=== PATIENT | female | born 1995 | race Caucasian/White ===

== ENCOUNTER 2022-03-03 00:05 | Emergency (ER) | payer OTHER ==
[2022-03-03 00:11] VITALS: TEMP 97.7
[2022-03-03] MEDS ORDERED: ACETAMINOPHEN TAB 500 MG TAB PO STA (00:21)
[2022-03-03] MEDS ORDERED: IBUPROFEN 400 MG TAB PO STA (00:21)
--- NOTE | 2022-03-03 00:24 | ED ---
ENT HPI - General Chief complaint: ENT Stated complaint: neck pain Time Seen by Provider: 03/03/22 00:14 Source: patient, RN notes reviewed Mode of arrival: ambulatory Limitations: no limitations - History of Present Illness Initial comments: This is a pleasant 26-year-old female presents complaining of sore throat, body aches, subjective fever since Saturday. Patient states she has history of lupus and rheumatoid arthritis. She states she leaves is getting a mild flare of her arthritis along with the fever. Patient has had a mild runny nose and a very mild cough. Patient denying any productive cough. Denies any problems with urination. No nausea or vomiting. No changes in bowel movements. No skin rashes or lesions. Patient to home COVID-19 test which was negative. Patient denies any respiratory distress. No neck stiffness. No change in vision or hearing. - Related Data Previous Rx's Medication Instructions Recorded methylPREDNISolone [Medrol] 4 mg PO DIRECTED #1 each 03/03/22 Allergies Allergy/AdvReac Type Severity Reaction Status Date / Time No Known Allergies Allergy Verified 03/03/22 00:06 Review of Systems ROS Statement: Those systems with pertinent positive or pertinent negative responses have been documented in the HPI. ROS Other: All systems not noted in ROS Statement are negative. Past Medical History Additional Past Medical History / Comment(s): LUPUS, RA History of Any Multi-Drug Resistant Organisms: None Reported Past Surgical History: No Surgical Hx Reported Past Psychological History: No Psychological Hx Reported Smoking Status: Never smoker Past Alcohol Use History: None Reported Past Drug Use History: None Reported General Exam - General Exam Comments Initial Comments: Vital signs stable, patient afebrile. Patient appears to be minimally ill but not toxic. Limitations: no limitations General appearance: alert, in no apparent distress Head exam: Present: atraumatic, normocephalic, normal inspection Eye exam: Present: normal appearance, PERRL, EOMI. Absent: scleral icterus, conjunctival injection, periorbital swelling ENT exam: Present: normal exam, normal oropharynx, mucous membranes moist, TM's normal bilaterally, normal external ear exam. Absent: mucous membranes dry Expanded Mouth exam: Present: normal external inspection. Absent: drooling, trismus, muffled voice, tongue normal, tongue elevation, laceration Teeth exam: Present: normal inspection Throat exam: normal inspection. negative: tonsillar erythema, tonsillomegaly, tonsillar exudate, R peritonsillar mass, L peritonsillar mass Neck exam: Present: normal inspection, full ROM. Absent: tenderness, meningismus, lymphadenopathy Respiratory exam: Present: normal lung sounds bilaterally. Absent: respiratory distress, wheezes, rales, rhonchi, stridor, chest wall tenderness, accessory muscle use, decreased breath sounds, prolonged expiratory Cardiovascular Exam: Present: regular rate, normal rhythm, normal heart sounds. Absent: systolic murmur, diastolic murmur, rubs, gallop, clicks GI/Abdominal exam: Present: soft, normal bowel sounds. Absent: distended, tenderness, guarding, rebound, rigid Extremities exam: Present: normal inspection, full ROM, normal capillary refill. Absent: tenderness, pedal edema, joint swelling, calf tenderness Back exam: Present: normal inspection Neurological exam: Present: alert, oriented X3, CN II-XII intact Psychiatric exam: Present: normal affect, normal mood Skin exam: Present: warm, dry, intact, normal color. Absent: rash Course Vital Signs 03/03/22 00:07 Temperature 97.7 F Pulse Rate 78 Respiratory 18 Rate Blood Pressure 122/80 O2 Sat by Pulse 99 Oximetry - Reevaluation(s) Reevaluation #1: 03/03/22 01:55 Medical record is reviewed Symptoms are improved here in the emergency department Patient is informed of results and questions answered Patient in no distress Medical Decision Making - Medical Decision Making Patient presents symptomology most consistent with viral syndrome. No evidence of respiratory distress. Patient appears to be adequately hydrated. We'll order influenza and COVID-19 testing. Ibuprofen and acetaminophen ordered. We'll also order a streptococcal test. However this does not appear to be consistent with this. Patient's viral test is negative. Streptococcal testing is negative. Patient's presentation consistent with viral syndrome. We did discuss possibility of other viruses to include mononucleosis. However the patient is only 2 or 3 days into the illness. Mononucleosis testing likely to be negative. I did tell the patient if she is still ill after 7-10 days she should have blood work done to include mononucleosis testing. I did offer laboratory work to the patient which she deferred. Aspect patient has a viral syndrome. Blood was deferred shared decision-making. Work note given. Patient will follow-up with her regular physician on Saturday. I'm going to cover the patient with a Medrol Dosepak and a dose of dexamethasone here based on her symptomology. Certainly the patient could have a flareup of her rheumatoid arthritis as well. The case was discussed in detail with ED attending physician. Presentation, findings, treatment plan discussed in detail. Patient was told to return to the ER for any signs or symptoms worsen. Told to return immediately if any other problems arise. All questions answered. Treatment plan discussed. Patient in agreement Every effort has been made to ensure accuracy of this dictation. However, due to the limitations of electronic medical records and dictation devices, errors in charting still occur. Supervising physician is Dr. Gardner - Lab Data Lab Results 03/03/22 03/03/22 03/03/22 Range/Units 01:10 01:10 01:10 Coronavirus (PCR) Not Detected (Not Detectd) Influenza Type A RNA Not Detected (Not Detectd) Influenza Type B (PCR) Not Detected (Not Detectd) Group A Strep Rapid Negative (Negative) Disposition Clinical Impression: Acute viral pharyngitis, Acute viral syndrome Disposition: HOME SELF-CARE Condition: Good Instructions (If sedation given, give patient instructions): Viral Syndrome (ED) Additional Instructions: Follow-up with your regular physician as directed. Return to the ER immediately if any symptoms worsen, new symptoms arise, or any other problems develop. Follow-up with Dr. Her on Saturday. Prescriptions: methylPREDNISolone [Medrol] 4 mg PO DIRECTED #1 each Is patient prescribed a controlled substance at d/c from ED?: No Referrals: Naman Her DO [Primary Care Provider] - 1-2 days Time of Disposition: 01:56
[2022-03-03] MEDS ORDERED: DEXAMETHASONE SOD PHOSPHATE 10 MG/ML 1 ML VIAL IM STA (01:54)
[2022-03-03 03:23] VITALS: BP 121/74; PULSE 74; RESP 16
== END 2022-03-03 03:25 | disposition home or self-care (01) ==
LOC: EC 00:05
DX: J02.8 Acute pharyngitis due to other specified organisms (principal); B34.9 Viral infection, unspecified; Z20.822 Contact with and (suspected) exposure to COVID-19
CPT/HCPCS: 87081; 87430; 87502; 87635; 99284; 96372; J1100

== ENCOUNTER 2022-03-10 11:59 | Inpatient (IN) | payer OTHER ==
--- NOTE | 2022-03-10 12:51 | XR ---
EXAMINATION TYPE: XR chest 2V DATE OF EXAM: 03/10/2022 COMPARISON: NONE HISTORY: Cough and shortness of breath for 1.5 weeks. TECHNIQUE: Frontal and lateral views of the chest are obtained. FINDINGS: There are small to tiny bilateral pleural effusions. No suspicious focal airspace opacity or pneumothorax. The cardiac silhouette size is within normal limits. The osseous structures are i ntact. IMPRESSION: Small to tiny bilateral pleural effusions. No suspicious acute infiltrate.
[2022-03-10 13:50] LABS: Prothrombin Time 10.7 sec (9.0-12.0)
[2022-03-10 13:55] LABS: ALT 12 U/L (4-34); AST 24 U/L (14-36); African American GFR (CKD) >90 (>60 ml/min/1.73 sqM); Albumin 4.4 g/dL (3.5-5.0); Alkaline Phosphatase 68 U/L (38-126); Anion Gap 13 mmol/L; Basophils % (A) 0 %; Blood Urea Nitrogen 14 mg/dL (7-17); Calcium 8.8 mg/dL (8.4-10.2); Carbon Dioxide 24 mmol/L (22-30); Chloride 99 mmol/L (98-107); Eosinophils # (A) 0.1 k/uL (0-0.7); Eosinophils % (A) 1 %; Glucose 99 mg/dL (74-99); HCT 43.1 % (34.0-46.0); HGB 14.5 gm/dL (11.4-16.0); Lymphocytes # (A) 1.3 k/uL (1.0-4.8); Lymphocytes % (A) 12 %; MCH 27.8 pg (25.0-35.0); MCHC 33.6 g/dL (31.0-37.0); MCV 82.7 fL (80.0-100.0); Mean Platelet Volume 7.5; Monocytes # (A) 0.3 k/uL (0-1.0); Monocytes % (A) 3 %; Neutrophils # (A) 8.5 k/uL (1.3-7.7); Neutrophils % (A) 83 %; Non-African American GFR(CKD) >90 (>60 ml/min/1.73 sqM); Platelet Count 218 k/uL (150-450); RBC 5.21 m/uL (3.80-5.40); RDW 12.8 % (11.5-15.5); Sodium 136 mmol/L (137-145); Total Bilirubin 0.5 mg/dL (0.2-1.3); WBC 10.3 k/uL (3.8-10.6)
[2022-03-10] MEDS ORDERED: KETOROLAC 15 MG/ML 1 ML VIAL IM STA (14:38)
--- NOTE | 2022-03-10 16:46 | CT ---
EXAMINATION TYPE: CT chest angio for PE CT DLP: 223.6 mGycm, Automated exposure control for dose reduction was used. DATE OF EXAM: 03/10/2022 4:06 PM COMPARISON: . Chest radiograph from same day. CLINICAL INDICATION:Female, 26 years old with history of SOB, ELEVATED D-DIMER; elevated d-dimer. sob . Coughing up blood TECHNIQUE/CONTRAST: CTA scan of the thorax is performed with IV Contrast, patient injected with 56ml mL of Isovue 370, pu lmonary embolism protocol. MIP images are created and reviewed. FINDINGS: Pulmonary Artery: Filling defects are seen within the pulmonary arterial vasculature including the ri ght middle and lower lobe as well as the left upper and lower lobes segmental and subsegmental branch es. There is no evidence for right heart chain. The pulmonary artery is of normal size. Lungs/Pleura: Opacities seen within the lung bases in the periphery bilaterally. Trace left pleural e ffusion is suggested. No pneumothorax. Airway: Large airways are patent. Heart: Heart is within normal limits for size.. Vasculature: No evidence of aortic aneurysm. Mediastinum: No gross evidence of adenopathy. Musculoskeletal: No acute osseous abnormalities Soft Tissues: Unremarkable. Lower neck: No significant findings. Upper Abdomen: No significant findings. IMPRESSION: 1. Scattered pulmonary emboli without evidence for right heart strain. 2. More solid appearing opacities with some groundglass located peripherally and in the bilateral low er lobes. These could represent early pulmonary infarct.
[2022-03-10] MEDS ORDERED: HEPARIN SODIUM 1,000 UN/ML (10ML VL) IV PRN (16:59)
[2022-03-10] MEDS ORDERED: HEPARIN SODIUM 1,000 UN/ML (10ML VL) IV ONE (16:59)
[2022-03-10] MEDS: HEPARIN SOD,PORK IN 0.45% NACL 25,000 UNIT in 0.45% NACL 1 250ML.BAG IV SCH (17:07)
[2022-03-10] MEDS ORDERED: NALOXONE 0.4 MG/ML 1 ML VIAL IV PRN (17:33)
--- NOTE | 2022-03-10 17:39 | ED ---
General Adult HPI - General Chief complaint: Shortness of Breath Stated complaint: Coughing up blood Time Seen by Provider: 03/10/22 13:57 Source: patient Mode of arrival: ambulatory Limitations: no limitations - History of Present Illness Initial comments: Patient is a 26-year-old female presenting with chief complaint of pleuritic chest pain and hemoptysis. Patient states that she has been sick for the last week, she has had a sore throat and blood-tinged sputum. She admits to pain along the sides and back with deep breathing. Patient was evaluated and tested for Covid, flu, strep throat all of which were negative. She has a history of lupus and rheumatoid arthritis, states that this illness has caused a flareup. Patient has previously been treated with a steroid for this issue. She denies any abdominal pain, nausea, vomiting, fever, chills, palpitations, weakness, leg pain or swelling, recent travel, recent surgery, use of oral contraceptives, history of blood clots, dysuria, hematuria, urgency, frequency, hematochezia, melena. - Related Data Home Medications Medication Instructions Recorded Confirmed Acetaminophen [Tylenol Extra 1,000 mg PO Q6H PRN 03/10/22 03/10/22 Strength] Azithromycin [Zithromax Z-pack (6 See Taper PO DIRECTED 03/10/22 03/10/22 tabs)] Allergies Allergy/AdvReac Type Severity Reaction Status Date / Time No Known Allergies Allergy Verified 03/10/22 17:59 Review of Systems ROS Statement: Those systems with pertinent positive or pertinent negative responses have been documented in the HPI. ROS Other: All systems not noted in ROS Statement are negative. Past Medical History Additional Past Medical History / Comment(s): LUPUS, RA History of Any Multi-Drug Resistant Organisms: None Reported Past Surgical History: No Surgical Hx Reported Past Psychological History: No Psychological Hx Reported Smoking Status: Never smoker Past Alcohol Use History: None Reported Past Drug Use History: None Reported General Exam Limitations: no limitations General appearance: alert, in no apparent distress Head exam: Present: atraumatic, normocephalic, normal inspection Eye exam: Present: normal appearance, EOMI. Absent: scleral icterus Neck exam: Present: normal inspection Respiratory exam: Present: normal lung sounds bilaterally. Absent: respiratory distress, wheezes, rales, rhonchi, stridor Cardiovascular Exam: Present: regular rate, normal rhythm, normal heart sounds. Absent: systolic murmur, diastolic murmur, rubs, gallop, clicks Neurological exam: Present: alert, oriented X3, CN II-XII intact Psychiatric exam: Present: normal affect, normal mood Skin exam: Present: warm, dry, intact, normal color. Absent: rash Course Vital Signs 03/10/22 03/10/22 03/10/22 12:27 17:10 21:02 Temperature 98.4 F 98.4 F Pulse Rate 102 H 80 Pulse Rate [ 90 Pulse Oximetery ] Respiratory 20 18 16 Rate Blood Pressure 100/72 112/72 Blood Pressure 116/70 [Left Arm] O2 Sat by Pulse 100 98 99 Oximetry EKG Findings - EKG Comments: EKG Findings:: Sinus tachycardia with rate of 103. There is borderline right axis deviation. SC interval of 126. QRS duration of 70. No S1 Q3 T3 pattern Procedures - [place] Protocol (Time Out) Nurse: Geetha Arzate Medical Decision Making - Medical Decision Making Patient is a 26-year-old female presenting with chief complaint of shortness of breath and pleuritic chest pain. She has a history of lupus and rheumatoid arthritis. She states that symptoms have been going on for the last week and have caused a flareup of her lupus. She was evaluated at urgent care today who sent her here when she admitted to hemoptysis. On examination lungs are clear to auscultation. EKG is without acute changes. D-dimer is elevated at 6.60. CTA of the chest shows scattered pulmonary emboli without evidence for right heart strain. More solid-appearing opacities with some groundglass located per ipherally in the bilateral lower lobes these could represent early pulmonary infarct. Patient was given Toradol for pain and high-dose heparin protocol for PE. Troponin is 0.025. BNP is 36. Venous Doppler study of bilateral lower extremities was ordered. Patient denies any current leg pain, she states that she did have calf pain back in November. I spoke with Dr. Aguilera regarding the plan for PE treatment. I spoke with [facility] agreed to admit the patient. Educated the patient on the findings. Patient conveyed verbal understanding was in agreement with the plan. I discussed this case with my attending Dr. Gutierrez - Lab Data Result diagrams: 03/10/22 13:20 03/10/22 13:20 Lab Results 03/10/22 03/10/22 03/10/22 Range/Units 13:20 13:20 13:20 WBC 10.3 (3.8-10.6) k/uL RBC 5.21 (3.80-5.40) m/uL Hgb 14.5 (11.4-16.0) gm/dL Hct 43.1 (34.0-46.0) % MCV 82.7 (80.0-100.0) fL MCH 27.8 (25.0-35.0) pg MCHC 33.6 (31.0-37.0) g/dL RDW 12.8 (11.5-15.5) % Plt Count 218 (150-450) k/uL MPV 7.5 Neutrophils % 83 % Lymphocytes % 12 % Monocytes % 3 % Eosinophils % 1 % Basophils % 0 % Neutrophils # 8.5 H (1.3-7.7) k/uL Lymphocytes # 1.3 (1.0-4.8) k/uL Monocytes # 0.3 (0-1.0) k/uL Eosinophils # 0.1 (0-0.7) k/uL Basophils # 0.0 (0-0.2) k/uL PT 10.7 (9.0-12.0) sec INR 1.0 (<1.2) APTT 36.0 H (22.0-30.0) sec D-Dimer (<0.60) mg/L FEU Sodium 136 L (137-145) mmol/L Potassium 4.0 (3.5-5.1) mmol/L Chloride 99 (98-107) mmol/L Carbon Dioxide 24 (22-30) mmol/L Anion Gap 13 mmol/L BUN 14 (7-17) mg/dL Creatinine 0.70 (0.52-1.04) mg/dL Est GFR (CKD-EPI)AfAm >90 (>60 ml/min/1.73 sqM) Est GFR (CKD-EPI)NonAf >90 (>60 ml/min/1.73 sqM) Glucose 99 (74-99) mg/dL Plasma Lactic Acid Jonn (0.7-2.0) mmol/L Calcium 8.8 (8.4-10.2) mg/dL Total Bilirubin 0.5 (0.2-1.3) mg/dL AST 24 (14-36) U/L ALT 12 (4-34) U/L Alkaline Phosphatase 68 (38-126) U/L Troponin I (0.000-0.034) ng/mL Total Protein 8.0 (6.3-8.2) g/dL Albumin 4.4 (3.5-5.0) g/dL 03/10/22 03/10/22 03/10/22 Range/Units 13:20 13:20 15:05 WBC (3.8-10.6) k/uL RBC (3.80-5.40) m/uL Hgb (11.4-16.0) gm/dL Hct (34.0-46.0) % MCV (80.0-100.0) fL MCH (25.0-35.0) pg MCHC (31.0-37.0) g/dL RDW (11.5-15.5) % Plt Count (150-450) k/uL MPV Neutrophils % % Lymphocytes % % Monocytes % % Eosinophils % % Basophils % % Neutrophils # (1.3-7.7) k/uL Lymphocytes # (1.0-4.8) k/uL Monocytes # (0-1.0) k/uL Eosinophils # (0-0.7) k/uL Basophils # (0-0.2) k/uL PT (9.0-12.0) sec INR (<1.2) APTT (22.0-30.0) sec D-Dimer 6.60 H (<0.60) mg/L FEU Sodium (137-145) mmol/L Potassium (3.5-5.1) mmol/L Chloride (98-107) mmol/L Carbon Dioxide (22-30) mmol/L Anion Gap mmol/L BUN (7-17) mg/dL Creatinine (0.52-1.04) mg/dL Est GFR (CKD-EPI)AfAm (>60 ml/min/1.73 sqM) Est GFR (CKD-EPI)NonAf (>60 ml/min/1.73 sqM) Glucose (74-99) mg/dL Plasma Lactic Acid Jonn 1.1 (0.7-2.0) mmol/L Calcium (8.4-10.2) mg/dL Total Bilirubin (0.2-1.3) mg/dL AST (14-36) U/L ALT (4-34) U/L Alkaline Phosphatase (38-126) U/L Troponin I 0.025 (0.000-0.034) ng/mL Total Protein (6.3-8.2) g/dL Albumin (3.5-5.0) g/dL Disposition Clinical Impression: Pulmonary embolism Disposition: ADMITTED IP TO THIS [facility] Condition: Fair Time of Disposition: 17:39 Decision to Admit Reason: Admit from EC Decision Date: 03/10/22 Decision Time: 17:39
--- NOTE | 2022-03-10 17:55 | US ---
EXAMINATION TYPE: US venous doppler duplex LE DATE OF EXAM: 03/10/2022 5:14 PM COMPARISON: NONE CLINICAL HISTORY: pulmonary emboli, check for DVT. On IV heparin SIDE PERFORMED: Bilateral TECHNIQUE: The lower extremity deep venous system is examined utilizing real time linear array sonog jessica with graded compression, doppler sonography and color-flow sonography. VESSELS IMAGED: Common Femoral Vein Deep Femoral Vein Greater Saphenous Vein * Femoral Vein Popliteal Vein Small Saphenous Vein * Proximal Calf Veins (* superficial vessels) Grayscale, color doppler, spectral doppler imaging performed of the deep veins of the lower extremiti es. Right Leg: Negative for DVT Left Leg: Positive for DVT from distal Femoral vein to proximal calf veins. Thready flow. Compressi bility with decreased color flow involving the distal femoral vein into the posterior tibial veins. IMPRESSION: 1. Deep vein thrombosis of the left femoral vein involving the distal portion to the posterior tibia l veins. 2. No evidence of deep vein tendinosis of the right lower extremity.
[2022-03-10] MEDS ORDERED: traMADol 50 MG TAB PO PRN (21:16)
[2022-03-10] MEDS ORDERED: ACETAMINOPHEN TAB 325 MG TAB PO PRN (21:18)
[2022-03-11 08:29] LABS: Basophils % (A) 0 %; Eosinophils # (A) 0.1 k/uL (0-0.7); Eosinophils % (A) 1 %; HGB 12.5 gm/dL (11.4-16.0); Lymphocytes # (A) 0.9 k/uL (1.0-4.8); Lymphocytes % (A) 11 %; MCH 28.2 pg (25.0-35.0); MCHC 33.9 g/dL (31.0-37.0); MCV 83.3 fL (80.0-100.0); Mean Platelet Volume 7.1; Monocytes # (A) 0.3 k/uL (0-1.0); Monocytes % (A) 3 %; Neutrophils % (A) 83 %; Platelet Count 179 k/uL (150-450); RBC 4.44 m/uL (3.80-5.40); RDW 12.9 % (11.5-15.5); WBC 8.5 k/uL (3.8-10.6)
--- NOTE | 2022-03-11 12:24 | P.HPIM ---
History of Present Illness Patient is pleasant 26-year-old female came in with complains of pruritic chest pain and hemoptysis with blood-tinged sputum. Patient does have history of systemic lupus erythematosus, patient has been symptom free for many years but patient had a recent flareup after a viral infection. Patient denied any calf pain this time but had some Discomfort in month of October. Patient denied any fever chills. Patient had a CT of the chest which showed scattered pulmonary emboli without any evidence of right heart strain and possible pulmonary infarct, Doppler of the left lower x-ray today showed thrombus in the posterior tibial veins. Echo will be obtained and vascular surgery was consulted for EKos evaluation. Since troponin was negative and patient is presently on IV heparin, patient denied any recent, usually functional denied using any oral contraceptive pills. REVIEW OF SYSTEMS: CONSTITUTIONAL: No fever, no malaise, no fatigue. HEENT: No recent visual problems or hearing problems. Denied any sore throat. CARDIOVASCULAR: No orthopnea, PND, no palpitations, no syncope. PULMONARY: As mentioned in HPI GASTROINTESTINAL: No diarrhea, no nausea, no vomiting, no abdominal pain. NEUROLOGICAL: No headaches, no weakness, no numbness. HEMATOLOGICAL: Denies any bleeding or petechiae. GENITOURINARY: Denies any burning micturition, frequency, or urgency. MUSCULOSKELETAL/RHEUMATOLOGICAL: Denies any joint pain, swelling, or any muscle pain. ENDOCRINE: Denies any polyuria or polydipsia. The rest of the 14-point review of systems is negative. PHYSICAL EXAMINATION: GENERAL: The patient is alert and oriented x3, not in any acute distress. Well developed, well nourished. HEENT: Pupils are round and equally reacting to light. EOMI. No scleral icterus. No conjunctival pallor. Normocephalic, atraumatic. No pharyngeal erythema. No thyromegaly. CARDIOVASCULAR: S1 and S2 present. No murmurs, rubs, or gallops. PULMONARY: Chest is clear to auscultation, no wheezing or crackles. ABDOMEN: Soft, nontender, nondistended, normoactive bowel sounds. No palpable organomegaly. MUSCULOSKELETAL: No joint swelling or deformity. EXTREMITIES: No cyanosis, clubbing, or pedal edema. NEUROLOGICAL: Gross neurological examination did not reveal any focal deficits. SKIN: No rashes. Assessment and plan Bilateral pulmonary embolism and DVT: Patient does have history of SLE with a recent flareup after viral infection. Patient will be continued on IV heparin will evaluate for any type and the strain. Patient may need to be on lifelong anticoagulation considering SLE. Neurology will be consulted vascular surgery was consulted for EKOS and intralesional thrombolytic therapy evaluation. History of systemic lupus erythematosus with recent flareup presently doesn't have any skin lesions at this time -DVT of the left lower extremity secondary to SLE DVT prophylaxis: Presently on IV heparin will be transitioned to oral anticoagulation after evaluation by a vascular surgery Past Medical History Additional Past Medical History / Comment(s): LUPUS, RA History of Any Multi-Drug Resistant Organisms: None Reported Past Surgical History: No Surgical Hx Reported Past Anesthesia/Blood Transfusion Reactions: No Reported Reaction Past Psychological History: No Psychological Hx Reported Smoking Status: Never smoker Past Alcohol Use History: None Reported Past Drug Use History: None Reported Medications and Allergies Home Medications Medication Instructions Recorded Confirmed Type Acetaminophen [Tylenol Extra 1,000 mg PO Q6H PRN 03/10/22 03/10/22 History Strength] Azithromycin [Zithromax Z-pack (6 See Taper PO DIRECTED 03/10/22 03/10/22 History tabs)] Allergies Allergy/AdvReac Type Severity Reaction Status Date / Time No Known Allergies Allergy Verified 03/10/22 17:59 Physical Exam Vitals: Vital Signs Temp Pulse Pulse Resp BP BP Pulse Ox 03/11/22 08:00 98.0 F 96 16 110/75 100 03/11/22 07:35 99 03/11/22 03:57 98.1 F 86 14 99/55 99 03/11/22 02:10 99/61 03/11/22 00:06 98.2 F 84 16 95/61 99 03/10/22 21:02 98.4 F 90 16 116/70 99 03/10/22 17:10 80 18 112/72 98 03/10/22 12:27 98.4 F 102 H 20 100/72 100 Intake and Output 03/10/22 03/11/22 03/11/22 22:59 06:59 14:59 Intake Total 77.159 118 Balance 77.159 118 Intake: Intake, IV Titration 77.159 Amount Heparin Sod,Pork in 0.45% 77.159 NaCl 25,000 unit In 0.45 % NaCl 1 250ml.bag @ 18 UNITS/KG/HR 11.431 mls/hr IV .[id number] [facility] Rx#: [id number] Oral 118 Other: # Voids 1 1 Weight 63.503 kg 42 kg Results CBC & Chem 7: 03/11/22 08:02 03/10/22 13:20 Labs: Abnormal Lab Results - Last 24 Hours (Table) 03/10/22 03/10/22 03/10/22 Range/Units 13:20 13:20 13:20 Neutrophils # 8.5 H (1.3-7.7) k/uL Lymphocytes # (1.0-4.8) k/uL APTT 36.0 H (22.0-30.0) sec D-Dimer (<0.60) mg/L FEU Sodium 136 L (137-145) mmol/L 03/10/22 03/10/22 03/11/22 Range/Units 15:05 23:08 08:02 Neutrophils # (1.3-7.7) k/uL Lymphocytes # 0.9 L (1.0-4.8) k/uL APTT >200.0 H* (22.0-30.0) sec D-Dimer 6.60 H (<0.60) mg/L FEU Sodium (137-145) mmol/L 03/11/22 Range/Units 08:02 Neutrophils # (1.3-7.7) k/uL Lymphocytes # (1.0-4.8) k/uL APTT 61.5 H (22.0-30.0) sec D-Dimer (<0.60) mg/L FEU Sodium (137-145) mmol/L Thrombosis Risk Factor Assmnt - Choose All That Apply Any of the Below Risk Factors Present?: No Each Risk Factor Represents 3 Points: History of DVT/PE Other congenital or acquired thrombophilia - If yes, enter type in comment: No Thrombosis Risk Factor Assessment Total Risk Factor Score: 3 Thrombosis Risk Factor Assessment Level: Moderate Risk
[2022-03-11] MEDS ORDERED: traMADol 50 MG TAB PO PRN (14:00)
[2022-03-11] MEDS: HYDROcodone/APAP 7.5-325MG 1 EACH TAB PO PRN ×2 (14:55→20:37)
[2022-03-11] MEDS ORDERED: HYDROmorphone 0.5 MG/0.5 ML SYRINGE IVP PRN (15:23)
--- NOTE | 2022-03-11 16:15 | P.GSCN ---
History of Present Illness Consult date: 03/11/22 Reason for Consult: PE History of present illness: 26 year old female presented to the hospital secondary to chest pain and hemoptysis. She was found to have scattered PE's on CTA of the chest and the ER contacted me at that time for consultation. She denies any lower extremity pain or swelling but recommendation for lower extremity ultrasound was ordered and patient was found to have a DVT of the left lower extremity. She was placed on anticoagulation. Patient denies any fevers, chills, chest pain or shortness of breath currently. Review of Systems All systems: negative (what is mentioned in the past medical history or HPI) Past Medical History Additional Past Medical History / Comment(s): LUPUS, RA History of Any Multi-Drug Resistant Organisms: None Reported Past Surgical History: No Surgical Hx Reported Past Anesthesia/Blood Transfusion Reactions: No Reported Reaction Past Psychological History: No Psychological Hx Reported Smoking Status: Never smoker Past Alcohol Use History: None Reported Past Drug Use History: None Reported Medications and Allergies Home Medications Medication Instructions Recorded Confirmed Type Acetaminophen [Tylenol Extra 1,000 mg PO Q6H PRN 03/10/22 03/10/22 History Strength] Azithromycin [Zithromax Z-pack (6 See Taper PO DIRECTED 03/10/22 03/10/22 History tabs)] Allergies Allergy/AdvReac Type Severity Reaction Status Date / Time No Known Allergies Allergy Verified 03/10/22 17:59 Surgical - Exam Vital Signs Temp Pulse Resp BP Pulse Ox 98.4 F 102 H 20 100/72 100 03/10/22 12:27 03/10/22 12:27 03/10/22 12:27 03/10/22 12:27 03/10/22 12:27 palpable dp and pt pulses. No edema. No tenderness to palpation - General well developed, well nourished, no distress - Eyes PERRL - ENT normal pinna - Neck no masses, no bruits - Respiratory normal expansion, normal respiratory effort - Cardiovascular Rhythm: regular - Abdomen Abdomen: soft, non tender - Integumentary no rash, no growths - Neurologic normal coordination, normal sensation - Psychiatric oriented to time, oriented to person, oriented to place, speech is normal Results - Labs 03/11/22 08:02 03/10/22 13:20 Abnormal Lab Results - Last 24 Hours (Table) 0503/10/22 03/11/22 Range/Units 15:05 23:08 08:02 Lymphocytes # 0.9 L (1.0-4.8) k/uL APTT >200.0 H* (22.0-30.0) sec D-Dimer 6.60 H (<0.60) mg/L FEU 03/11/22 Range/Units 08:02 Lymphocytes # (1.0-4.8) k/uL APTT 61.5 H (22.0-30.0) sec D-Dimer (<0.60) mg/L FEU Assessment and Plan Assessment: 1. Bilateral pulmonary embolism 2. Acute left lower extremity DVT 3. Systemic lupus erythematosis Plan: Reviewed CTA which demonstrates some scattered thrombi, no evidence of right heart strain. Recommend continuing and transitioning to oral anticoagulation. No indication for surgical intervention. Will re-evaluate at your request. Thank you for the consultation.
[2022-03-11] MEDS: HEPARIN SOD,PORK IN 0.45% NACL 25,000 UNIT in 0.45% NACL 1 250ML.BAG IV SCH (16:31)
--- NOTE | 2022-03-11 18:15 | P.CONS ---
History of Present Illness - Reason for Consult Consult date: 03/11/22 Pulmonary Embolism - History of Present Illness Louise is a very pleasant 26 year old female who presented a couple weeks ago to ER with complaints of viral infection, treated with antibiotics and steroids. SHe has known history of Juvenile Rheumatoid and Lupus, in which she states she has been in remission for approx 8 years, was on treatment with PLanquinil in 2011. She presents a couple weeks after initial infectious work-up with shortness of breath and chest pain, found to have scattered bilateral PEs, POssible infarcts, without heart strain. LLE with extensive DVT as well. No long car ride, no control, No other common risks except recent infection and the presumed Autoimmune history. Review of Systems All systems: negative Constitutional: Reports as per HPI Past Medical History Additional Past Medical History / Comment(s): LUPUS, RA History of Any Multi-Drug Resistant Organisms: None Reported Past Surgical History: No Surgical Hx Reported Past Anesthesia/Blood Transfusion Reactions: No Reported Reaction Past Psychological History: No Psychological Hx Reported Smoking Status: Never smoker Past Alcohol Use History: None Reported Past Drug Use History: None Reported Medications and Allergies Home Medications Medication Instructions Recorded Confirmed Type Acetaminophen [Tylenol Extra 1,000 mg PO Q6H PRN 03/10/22 03/10/22 History Strength] Azithromycin [Zithromax Z-pack (6 See Taper PO DIRECTED 03/10/22 03/10/22 History tabs)] Allergies Allergy/AdvReac Type Severity Reaction Status Date / Time No Known Allergies Allergy Verified 03/10/22 17:59 Physical Exam Vitals: Vital Signs Temp Pulse Pulse Resp BP BP Pulse Ox 03/11/22 08:00 98.0 F 96 16 110/75 100 03/11/22 07:35 99 03/11/22 03:57 98.1 F 86 14 99/55 99 03/11/22 02:10 99/61 03/11/22 00:06 98.2 F 84 16 95/61 99 03/10/22 21:02 98.4 F 90 16 116/70 99 03/10/22 17:10 80 18 112/72 98 Intake and Output 03/10/22 03/11/22 03/11/22 22:59 06:59 14:59 Intake Total 77.159 118 Balance 77.159 118 Intake: Intake, IV Titration 77.159 Amount Heparin Sod,Pork in 0.45% 77.159 NaCl 25,000 unit In 0.45 % NaCl 1 250ml.bag @ 18 UNITS/KG/HR 11.431 mls/hr IV .[id number] [facility] Rx#: [id number] Oral 118 Other: # Voids 1 1 Weight 63.503 kg 62 kg - Constitutional General appearance: cooperative, no acute distress - EENT Eyes: EOMI, PERRLA ENT: NA/AT - Neck Neck: normal ROM - Respiratory Respiratory: bilateral: CTA - Cardiovascular Rhythm: regularly irregular leg Peripheral Edema: left: 2+ - Gastrointestinal General gastrointestinal: soft - Integumentary Integumentary: pale - Neurologic Neurologic: CNII-XII intact - Musculoskeletal Musculoskeletal: generalized weakness - Psychiatric Psychiatric: A&O x's 3, appropriate affect, intact judgment & insight Results CBC & Chem 7: 03/11/22 08:02 03/10/22 13:20 Labs: Abnormal Lab Results - Last 24 Hours (Table) 03/10/22 03/10/22 03/10/22 Range/Units 13:20 13:20 13:20 Neutrophils # 8.5 H (1.3-7.7) k/uL Lymphocytes # (1.0-4.8) k/uL APTT 36.0 H (22.0-30.0) sec D-Dimer (<0.60) mg/L FEU Sodium 136 L (137-145) mmol/L 03/10/22 03/10/22 03/11/22 Range/Units 15:05 23:08 08:02 Neutrophils # (1.3-7.7) k/uL Lymphocytes # 0.9 L (1.0-4.8) k/uL APTT >200.0 H* (22.0-30.0) sec D-Dimer 6.60 H (<0.60) mg/L FEU Sodium (137-145) mmol/L 03/11/22 Range/Units 08:02 Neutrophils # (1.3-7.7) k/uL Lymphocytes # (1.0-4.8) k/uL APTT 61.5 H (22.0-30.0) sec D-Dimer (<0.60) mg/L FEU Sodium (137-145) mmol/L CT scan - chest: report reviewed Venous US: report reviewed Assessment and Plan (1) Lupus (systemic lupus erythematosus) Current Visit: Yes Status: Acute Code(s): M32.9 - SYSTEMIC LUPUS ERYTHEM ATOSUS, UNSPECIFIED SNOMED Code(s): 36850369 (2) Rheumatoid arthritis, juvenile Current Visit: Yes Status: Acute Code(s): M08.00 - UNSP JUVENILE RHEUMATOID ARTHRITIS OF UNSPECIFIED SITE SNOMED Code(s): 915510431 (3) Left leg DVT Current Visit: Yes Status: Acute Code(s): I82.402 - ACUTE EMBOLISM AND THOMBOS UNSP DEEP VEINS OF L LOW EXTREM SNOMED Code(s): 060459163 (4) Pulmonary embolism Current Visit: Yes Status: Acute Code(s): I26.99 - OTHER PULMONARY EMBOLISM WITHOUT ACUTE COR PULMONALE SNOMED Code(s): 37899561 Plan: Work-up for Antiphospholipid syndrome ordered as limitied data for AC with DOAC in these situation, plan will likely be Lovenox at discharge. She denies sexual activity and understands risks of if warfarin used. Likely lifelong recommendations for AC therapy.
[2022-03-12] MEDS: HYDROcodone/APAP 7.5-325MG 1 EACH TAB PO PRN ×4 (02:10→19:59)
[2022-03-12] MEDS ORDERED: HYDROmorphone 0.5 MG/0.5 ML SYRINGE IVP PRN (10:37)
--- NOTE | 2022-03-12 14:15 | XR ---
EXAMINATION TYPE: XR chest 2V DATE OF EXAM: 03/12/2022 COMPARISON: Chest x-ray 2 days ago. HISTORY: Chest pain. History of pulmonary emboli. TECHNIQUE: Frontal and lateral views of the chest are obtained. FINDINGS: Small bilateral pleural effusions on current study with interval increase in size of right -sided effusion. The cardiac silhouette size remains within normal limits. The osseous structures are intact. IMPRESSION: Small bilateral pleural effusions now present increased in size in the right lung and st able in size in the left lung with worsening right basilar acute atelectasis and/or infiltrate noted.
--- NOTE | 2022-03-12 15:30 | P.PN ---
Subjective Progress Note Date: 03/12/22 This is a 26-year-old female admitted with left lower extremity DVT, scattered PEs in a patient with history of juvenile rheumatoid arthritis, lupus and multiple other medical issues. Maintained on anticoagulation on heparin drip. Maintaining O2 sats up to 100% on room air. Tachycardia with heart rates up to 120 with exertion, reports accompanied by exertional shortness of breath. Complains of pain with deep inspiration, relieved with [place]. Evaluated by vascular surgery was CT reviewed, reporting no evidence of right heart strain. Denies any chest pain, palpitations. Objective - Vital Signs Vital signs: Vital Signs Temp 98.4 F 03/12/22 08:00 Pulse 94 03/12/22 14:00 Resp 18 03/12/22 14:00 BP 103/69 03/12/22 12:00 Pulse Ox 100 03/12/22 12:00 FiO2 21 03/11/22 07:35 Intake & Output 03/11/22 03/12/22 03/12/22 18:59 06:59 18:59 Intake Total 482.461 622.981 Balance 482.461 622.981 Weight 62 kg Intake: Intake, IV Titration 128.461 142.981 Amount Heparin Sod,Pork in 0.45% 128.461 142.981 NaCl 25,000 unit In 0.45 % NaCl 1 250ml.bag @ 18 UNITS/KG/HR 11.431 mls/hr IV .[id number] [facility] Rx#: [id number] Oral 354 480 Other: Voiding Method Toilet Toilet # Voids 1 2 - Exam PHYSICAL EXAM: VITAL SIGNS: [As above] GENERAL: Sitting up in chair, no acute distress, anxious, teary-eyed HEENT: Conjunctivae normal. eyes normal. NECK: No JVD. No thyroid enlargement. No LNs CARDIOVASCULAR: S1, S2 regular. No murmur RESPIRATION: Breath sounds diminished in the bases. No rhonchi or crackles. No bronchial breathing. ABDOMEN: Soft, nontender . No guarding. no masses palpable. No ascites, No hepatosplenomegaly.Bowel sounds heard. LEGS: No edema. no swelling PSYCHIATRY: Alert and oriented X3, mood and affect normal. NERVOUS SYSTEM: Cranial N 2-12 grossly normal.No focal deficits. Strength and sensation grossly intact. Skin: Warm and dry, no rash - Labs CBC & Chem 7: 03/11/22 08:02 03/10/22 13:20 Labs: Abnormal Lab Results - Last 24 Hours (Table) 03/12/22 Range/Units 07:44 APTT 60.2 H (22.0-30.0) sec Assessment and Plan Assessment: Acute Bilateral pulmonary embolism Acute left lower extremity DVT Lupus Rheumatoid arthritis, juvenile Plan: Continue on current medication regime ,monitoring and symptomatic treatment. Convert to oral anticoagulation-anticoagulation as per hematology. Discharge planning in progress for tomorrow. The impression and plan of care has been dictated as directed. : I performed a history and examination of this patient, discussed the same with the dictator. I agree with the dictator's note ,documented as a scribe. Any additional findings or plans will be noted.
[2022-03-12 16:19] LABS: Basophils # (A) 0.1 k/uL (0-0.2); Basophils % (A) 1 %; Eosinophils # (A) 0.1 k/uL (0-0.7); Eosinophils % (A) 1 %; HCT 37.9 % (34.0-46.0); HGB 12.5 gm/dL (11.4-16.0); Lymphocytes # (A) 1.5 k/uL (1.0-4.8); Lymphocytes % (A) 16 %; MCH 27.6 pg (25.0-35.0); MCHC 32.9 g/dL (31.0-37.0); MCV 83.7 fL (80.0-100.0); Mean Platelet Volume 7.2; Monocytes # (A) 0.3 k/uL (0-1.0); Monocytes % (A) 4 %; Neutrophils # (A) 7.1 k/uL (1.3-7.7); Neutrophils % (A) 77 %; Platelet Count 199 k/uL (150-450); RBC 4.53 m/uL (3.80-5.40); RDW 12.2 % (11.5-15.5); WBC 9.2 k/uL (3.8-10.6)
[2022-03-12 16:34] LABS: Creatinine,Urine Random 50.5 mg/dL; Protein/Creatinine Ratio,Urine 0.317
[2022-03-12 16:47] LABS: Appearance,Urine Clear (Clear); Bacteria,Urine Rare /hpf; Bilirubin,Urine Negative (Negative); Blood,Urine Negative (Negative); Color,Urine Light Yellow; Glucose,Urine (UA) Negative (Negative); Ketones,Urine Negative (Negative); Leukocyte Esterase,Urine Small (Negative); Mucus,Urine Rare /hpf; Nitrite,Urine Negative (Negative); Protein,Urine Negative (Negative); RBC,Urine 3 /hpf (0-5); Specific Gravity,Urine 1.005 (1.001-1.035); Squamous Epithelial Cell,Urine 1 /hpf (0-4); Urobilinogen,Urine <2.0 mg/dL (<2.0); WBC,Urine 5 /hpf (0-5)
[2022-03-12] MEDS: predniSONE 20 MG TAB PO SCH (17:24)
[2022-03-12] MEDS: HEPARIN SOD,PORK IN 0.45% NACL 25,000 UNIT in 0.45% NACL 1 250ML.BAG IV SCH (17:24)
[2022-03-12 18:48] LABS: Cardiolipin Ab IgG Interp Positive (NEGATIVE); Cardiolipin Ab IgM Interp NEGATIVE (NEGATIVE); Cardiolipin IgA Antibody 36.1 U/mL; Cardiolipin IgM Antibody 18.9 U/mL
--- NOTE | 2022-03-12 18:57 | CA ---
Transthoracic Echo Report Name: Louise Cohen Age: 26 Gender: F : 1995 Exam Date: 03/12/2022 09:51 Exam Location: [place] [facility] Ht (in): 65 Wt (lb): 136 Ordering Physician: Rosalina Gutierrez DO Attending/Referring Phys: [id number], Brenda Patching Machine Operator Dior Patel RDCS Procedure CPT: Indications: multiple pe's Cardiac Hx: Technical Quality: Good Contrast 1: Total Dose (mL): Contrast 2: Total Dose (mL): MEASUREMENTS (Male / Female) Normal Values 2D ECHO LV Diastolic Diameter PLAX 4.1 cm 4.2 - 5.9 / 3.9 - 5.3 cm LV Systolic Diameter PLAX 2.5 cm IVS Diastolic Thickness 0.8 cm 0.6 - 1.0 / 0.6 - 0.9 cm LVPW Diastolic Thickness 0.8 cm 0.6 - 1.0 / 0.6 - 0.9 cm LV Relative Wall Thickness 0.4 RV Internal Dim ED PLAX 1.8 cm LA Volume 27.6 cm??? 18 - 58 / 22 - 52 cm??? M-MODE Aortic Root Diameter MM 2.3 cm LA Systolic Diameter MM 2.5 cm LA Ao Ratio MM 1.1 AV Cusp Separation MM 1.4 cm DOPPLER AV Peak Velocity 129.3 cm/s AV Peak Gradient 6.7 mmHg LVOT Peak Velocity 124.4 cm/s LVOT Peak Gradient 6.2 mmHg MV Area PHT 3.9 cm??? Mitral E Point Velocity 86.9 cm/s Mitral A Point Velocity 75.7 cm/s Mitral E to A Ratio 1.1 MV Deceleration Time 195.9 ms MV E' Velocity 10.8 cm/s Mitral E to MV E' Ratio 8.1 TR Peak Velocity 245.1 cm/s TR Peak Gradient 24.0 mmHg Right Ventricular Systolic Press 28.3 mmHg FINDINGS Left Ventricle Normal Left ventricular size, wall thickness, systolic function with no obvious regional wall motion abnormalities. Normal Left ventricular diastolic filling pattern. Normal left ventricular diastolic filling pattern. Left ventricular ejection fraction is estimated at 55-60 %. Right Ventricle Right ventricle at upper limits of normal. Right ventricular systolic pressure within normal limits. Negative for right heart strain, TAPSE 21 mm. Right Atrium Normal right atrial size. Left Atrium Normal left atrial size. No evidence for an atrial septal defect. Mitral Valve Structurally normal mitral valve. No mitral stenosis, regurgitation or prolapse. Aortic Valve Trileaflet aortic valve. No aortic valve stenosis or regurgitation. Tricuspid Valve Structurally normal tricuspid valve. Trace to mild tricuspid regurgitation. Pulmonic Valve Structurally normal pulmonic valve. Pericardium Small pericardial effusion. Aorta Normal size aortic root and proximal ascending aorta. CONCLUSIONS Preserved LV size and systolic function The right ventricle appears mildly enlarged but this could represent off axis views Thickened pericardium with a small, hemodynamically insignificant effusion The pericardial reaction appears chronic Previewed by: Dr. Vin Hale MD (Electronically Signed) Final Date: 12 Mar 2022 18:56
[2022-03-12] MEDS: SENNOSIDES-DOCUSATE SODIUM 1 EACH TAB PO SCH (19:59)
[2022-03-12 20:49] LABS: Thyroid Peroxidase Antibodies <9.0 U/mL (0.0-33.0)
--- NOTE | 2022-03-12 21:08 | P.PN ---
Subjective Progress Note Date: 03/12/22 Worsening chest pain, in tears and unable to take a deep breath. Objective - Vital Signs Vital signs: Vital Signs Temp 98.4 F 03/12/22 08:00 Pulse 100 03/12/22 08:00 Resp 18 03/12/22 08:00 BP 107/72 03/12/22 08:00 Pulse Ox 98 03/12/22 08:00 FiO2 21 03/11/22 07:35 Intake & Output 03/11/22 03/12/22 03/12/22 18:59 06:59 18:59 Intake Total 482.461 142.981 Balance 482.461 142.981 Weight 62 kg Intake: Intake, IV Titration 128.461 142.981 Amount Heparin Sod,Pork in 0.45% 128.461 142.981 NaCl 25,000 unit In 0.45 % NaCl 1 250ml.bag @ 18 UNITS/KG/HR 11.431 mls/hr IV .[id number] [facility] Rx#: [id number] Oral 354 Other: Voiding Method Toilet Toilet # Voids 1 2 - Exam - Constitutional General appearance: cooperative, no acute distress - EENT Eyes: EOMI, PERRLA ENT: NA/AT - Neck Neck: normal ROM - Respiratory Respiratory: bilateral: Increased diminished and inability to take deep breath - Cardiovascular Rhythm: regularly irregular leg Peripheral Edema: left: 2+ - Gastrointestinal General gastrointestinal: soft - Integumentary Integumentary: pale - Neurologic Neurologic: CNII-XII intact - Musculoskeletal Musculoskeletal: generalized weakness - Psychiatric Psychiatric: A&O x's 3, appropriate affect, intact judgment & insight - Labs CBC & Chem 7: 03/12/22 15:47 03/10/22 13:20 Labs: Abnormal Lab Results - Last 24 Hours (Table) 03/12/22 Range/Units 07:44 APTT 60.2 H (22.0-30.0) sec Assessment and Plan (1) Lupus (systemic lupus erythematosus) Current Visit: Yes Status: Acute Code(s): M32.9 - SYSTEMIC LUPUS ERYTHEMATOSUS, UNSPECIFIED SNOMED Code(s): 77189452 (2) Rheumatoid arthritis, juvenile Current Visit: Yes Status: Acute Code(s): M08.00 - UNSP JUVENILE RHEUMATOID ARTHRITIS OF UNSPECIFIED SITE SNOMED Code(s): 656651278 (3) Left leg DVT Current Visit: Yes Status: Acute Code(s): I82.402 - ACUTE EMBOLISM AND THOMBOS UNSP DEEP VEINS OF L LOW EXTREM SNOMED Code(s): 618375056 (4) Pulmonary embolism Current Visit: Yes Status: Acute Code(s): I26.99 - OTHER PULMONARY EMBOLISM WITHOUT ACUTE COR PULMONALE SNOMED Code(s): 65312423 Plan: Work-up for Antiphospholipid syndrome ordered as limitied data for AC with DOAC in these situation, plan will likely be Lovenox at discharge. She denies sexual activity and understands risks of if warfarin used. Likely lifelong recommendations for AC therapy. Increased Chest pain and inability to take a deep breath: Chest xray with increased effusions. Dr. Valenzuela: I have completed the full history and physical and developed the above impression and plan , agree with dictation dictated aas a scribe.
[2022-03-12] MEDS ORDERED: ALPRAZolam 0.25 MG TAB PO PRN (21:09)
[2022-03-12] MEDS: HYDROmorphone 0.5 MG/0.5 ML SYRINGE IVP PRN (21:54)
[2022-03-12 22:03] LABS: ALT 8 U/L (4-34); AST 23 U/L (14-36); African American GFR (CKD) >90 (>60 ml/min/1.73 sqM); Alkaline Phosphatase 63 U/L (38-126); Anion Gap 9 mmol/L; Blood Urea Nitrogen 12 mg/dL (7-17); Calcium 8.6 mg/dL (8.4-10.2); Carbon Dioxide 23 mmol/L (22-30); Chloride 99 mmol/L (98-107); Glucose 119 mg/dL (74-99); Non-African American GFR(CKD) >90 (>60 ml/min/1.73 sqM); Potassium 4.2 mmol/L (3.5-5.1); Sodium 131 mmol/L (137-145); Total Bilirubin 0.3 mg/dL (0.2-1.3); Total Protein 7.3 g/dL (6.3-8.2)
[2022-03-12] MEDS ORDERED: AZITHROMYCIN 500 MG in SODIUM CHLORIDE 0.9% 250 ML IVPB SCH (22:30)
[2022-03-12] MEDS: SODIUM CHLORIDE 0.9% 1,000 ML IV SCH (22:37)
[2022-03-12 22:38] LABS: Anti-Smith Ab Interp POSITIVE (NEGATIVE)
[2022-03-12 22:39] LABS: Centromere Antibody <0.2 AI; Centromere Antibody Interp NEGATIVE (NEGATIVE); Cyclic Citrull Pep IgG Unit <0.5 U/mL; Cyclic Citrullinated Pep IgG NEGATIVE (NEGATIVE); DNA Double-Stranded POSITIVE (NEGATIVE); Scleroderma SC-70 Ab <0.2 AI
[2022-03-12 23:10] LABS: Complement C3 96.9 mg/dL (80.0-207.0)
[2022-03-13] MEDS: HYDROmorphone 0.5 MG/0.5 ML SYRINGE IVP PRN ×4 (01:07→22:18)
[2022-03-13] MEDS: HYDROcodone/APAP 7.5-325MG 1 EACH TAB PO PRN ×3 (03:47→19:05)
--- NOTE | 2022-03-13 07:42 | P.CONS ---
History of Present Illness - Reason for Consult Consult date: 03/12/22 Lupus Requesting physician: Jace Molina - History of Present Illness This is a hospital consult for a 26-year-old female that was admitted for hemoptysis. She was found to have multiple pulmonary embolisms and a DVT in her left leg. She is currently being evaluated by hematology for antiphospholipid syndrome. Patient admits to history of juvenile RA and lupus with diagnosis at age 9. History obtained through patient and her mother. They state that at age 9 patient started developing lesions on her thighs, elbows, with significant generalized joint pain and stiffness. She was evaluated by dermatology, Dr. Meyer at that time and was diagnosed with lupus through skin biopsy. She was then referred to [email or web address] and given steroids and Plaquenil. She then did very well and around 5 years ago discontinued her Plaquenil as she felt she no longer needed it. Patient then states about 2 weeks ago she started noticing sore throat and congestion and was diagnosed with bronchitis in the emergency room and given a Medrol Dosepak. 3 days later she had worsening congestion and developed lesions much like previous lupus flares. She saw her primary care, Dr. Her where labs were drawn and per patient she was told that her "lupus is active." She then was given antibiotics which did not seem to help and then returned to the emergency room where she was diagnosed with pulmonary embolism and DVT. Today, patient complains of left hand and right shoulder pain with swelling in h er left knuckles. The pain started around 2 weeks ago. She also shows me lesions that developed on her left elbow about 2 weeks ago as well. She complains of shortness of breath but denies any other complaints. Exam: Diminished lung sounds bilaterally, synovitis left second and third MCP, pain with right shoulder range of motion. I spoke with Dr. Muniz and we have high suspicion of lupus flare based on pictures of skin lesions and synovitis on exam today so we will order a complete connective tissue disease panel and start patient on oral prednisone 20 mg daily until she can be evaluated by our office as a outpatient. At that time, we will also try to obtain Dr. Meyer and [facility] [[email or web address]] historical records. Patient will need to contact our office to schedule an appointment with Dr. Muniz as soon as she is discharged from the hospital. Review of Systems Constitutional: Reports as per HPI, Reports fatigue Ears, nose, mouth and throat: Reports nasal congestion, Reports nasal discharge, Reports sinus pain Respiratory: Reports congestion, Reports dyspnea, Reports hemoptysis, Reports pain on inspiration Musculoskeletal: Reports morning stiffness, Reports myalgias Musculoskeletal: right: shoulder pain, shoulder stiffness, left: hand pain, hand stiffness, hand swelling Neurological: Reports as per HPI Psychiatric: Reports as per HPI Endocrine: Reports fatigue Past Medical History Additional Past Medical History / Comment(s): LUPUS, RA History of Any Multi-Drug Resistant Organisms: None Reported Past Surgical History: No Surgical Hx Reported Past Anesthesia/Blood Transfusion Reactions: No Reported Reaction Past Psychological History: No Psychological Hx Reported Smoking Status: Never smoker Past Alcohol Use History: None Reported Past Drug Use History: None Reported Medications and Allergies Home Medications Medication Instructions Recorded Confirmed Type Acetaminophen [Tylenol Extra 1,000 mg PO Q6H PRN 03/10/22 03/10/22 History Strength] Azithromycin [Zithromax Z-pack (6 See Taper PO DIRECTED 03/10/22 03/10/22 History tabs)] Acetaminophen Tab [Tylenol] 650 mg PO Q6HR PRN tab 03/12/22 Rx Sennosides-Docusate Sodium 1 each PO BID tab 03/12/22 Rx [Senokot-S] Allergies Allergy/AdvReac Type Severity Reaction Status Date / Time No Known Allergies Allergy Verified 03/10/22 17:59 Physical Exam Vitals: Vital Signs Temp Pulse Resp BP Pulse Ox 03/13/22 04:00 98.6 F 80 15 99/64 100 03/12/22 23:41 97.5 F L 89 15 101/64 97 03/12/22 20:00 98.2 F 120 H 14 91/53 99 03/12/22 16:00 98.6 F 110 H 18 104/67 03/12/22 14:00 94 18 03/12/22 12:00 94 18 103/69 100 03/12/22 08:00 98.4 F 100 18 107/72 98 Intake and Output 03/12/22 03/13/22 03/13/22 22:59 06:59 14:59 Intake Total 78.232 Balance 78.232 Intake: Intake, IV Titration 78.232 Amount Heparin Sod,Pork in 0.45% 78.232 NaCl 25,000 unit In 0.45 % NaCl 1 250ml.bag @ 18 UNITS/KG/HR 11.431 mls/hr IV .[id number] [facility] Rx#: [id number] Other: Voiding Method Toilet Toilet # Voids 4 - Constitutional General appearance: average body habitus, cooperative - EENT Eyes: PERRLA ENT: hearing grossly normal, normal oropharynx Ears: bilateral: normal - Neck Neck: normal ROM - Respiratory Respiratory: bilateral: diminished - Cardiovascular Rhythm: regular Heart sounds: normal: S1, S2 - Gastrointestinal General gastrointestinal: normal bowel sounds - Integumentary Integumentary: normal, normal turgor - Neurologic Neurologic: CNII-XII intact - Musculoskeletal Musculoskeletal: gait normal - Psychiatric Psychiatric: A&O x's 3 Synovitis left 2nd and 3rd MCP Results CBC & Chem 7: 03/12/22 15:47 03/12/22 21:22 Labs: Abnormal Lab Results - Last 24 Hours (Table) 03/12/22 03/12/22 03/12/22 Range/Units 07:44 07:44 14:39 ESR (0-20) mm/hr APTT 60.2 H (22.0-30.0) sec Sodium (137-145) mmol/L Glucose (74-99) mg/dL C-Reactive Protein (<1.0) mg/dL Ur Leukocyte Esterase (Negative) Urine Bacteria (None) /hpf Urine Mucus (None) /hpf [place] Screen POSITIVE A (NEGATIVE) Anti-Duron Interpret POSITIVE A (NEGATIVE) Double Strand DNA Ab POSITIVE A (NEGATIVE) Cardiolipin IgG Interp Positive A (NEGATIVE) Cardiolipin IgA Interp POSITIVE A (NEGATIVE) 03/12/22 03/12/22 03/12/22 Range/Units 15:00 15:34 15:34 ESR 64 H (0-20) mm/hr APTT (22.0-30.0) sec Sodium (137-145) mmol/L Glucose (74-99) mg/dL C-Reactive Protein 19.3 H (<1.0) mg/dL Ur Leukocyte Esterase Small H (Negative) Urine Bacteria Rare H (None) /hpf Urine Mucus Rare H (None) /hpf [place] Screen (NEGATIVE) Anti-Duron Interpret (NEGATIVE) Double Strand DNA Ab (NEGATIVE) Cardiolipin IgG Interp (NEGATIVE) Cardiolipin IgA Interp (NEGATIVE) 03/12/22 Range/Units 21:22 ESR (0-20) mm/hr APTT (22.0-30.0) sec Sodium 131 L (137-145) mmol/L Glucose 119 H (74-99) mg/dL C-Reactive Protein (<1.0) mg/dL Ur Leukocyte Esterase (Negative) Urine Bacteria (None) /hpf Urine Mucus (None) /hpf [place] Screen (NEGATIVE) Anti-Duron Interpret (NEGATIVE) Double Strand DNA Ab (NEGATIVE) Cardiolipin IgG Interp (NEGATIVE) Cardiolipin IgA Interp (NEGATIVE) Assessment and Plan Time with Patient: Greater than 30
[2022-03-13] MEDS: predniSONE 20 MG TAB PO SCH ×2 (09:39→15:21)
[2022-03-13] MEDS: SENNOSIDES-DOCUSATE SODIUM 1 EACH TAB PO SCH ×2 (09:39→20:39)
[2022-03-13] MEDS: SODIUM CHLORIDE 0.9% 1,000 ML IV SCH (09:40)
[2022-03-13 09:44] LABS: Angiotensin-1 Converting Enz. 30 U/L (8-52)
[2022-03-13 09:46] VITALS: RESP 16
[2022-03-13 09:58] LABS: Basophils % (A) 0 %; Eosinophils % (A) 0 %; HCT 36.7 % (34.0-46.0); Lymphocytes # (A) 1.4 k/uL (1.0-4.8); Lymphocytes % (A) 20 %; MCH 27.5 pg (25.0-35.0); MCHC 32.7 g/dL (31.0-37.0); Mean Platelet Volume 7.3; Monocytes # (A) 0.3 k/uL (0-1.0); Monocytes % (A) 4 %; Neutrophils # (A) 5.1 k/uL (1.3-7.7); Neutrophils % (A) 74 %; Platelet Count 237 k/uL (150-450); RBC 4.37 m/uL (3.80-5.40); RDW 12.1 % (11.5-15.5); WBC 6.9 k/uL (3.8-10.6)
[2022-03-13 10:19] LABS: ALT 9 U/L (4-34); AST 20 U/L (14-36); African American GFR (CKD) >90 (>60 ml/min/1.73 sqM); Albumin 3.9 g/dL (3.5-5.0); Alkaline Phosphatase 53 U/L (38-126); Anion Gap 10 mmol/L; Blood Urea Nitrogen 8 mg/dL (7-17); Calcium 8.7 mg/dL (8.4-10.2); Carbon Dioxide 27 mmol/L (22-30); Chloride 101 mmol/L (98-107); Glucose 106 mg/dL (74-99); Non-African American GFR(CKD) >90 (>60 ml/min/1.73 sqM); Potassium 4.4 mmol/L (3.5-5.1); Sodium 138 mmol/L (137-145); Total Bilirubin 0.3 mg/dL (0.2-1.3); Total Protein 7.3 g/dL (6.3-8.2)
--- NOTE | 2022-03-13 13:02 | P.CONS ---
History of Present Illness - Reason for Consult Consult date: 03/13/22 - History of Present Illness This is a hospital consult that we are following. She was admitted with DVT and multiple pulmonary embolisms with history of lupus not currently on any treatment. She is receiving anticoagulation through hematology with workup for antiphospholipid syndrome. She was evaluated at bedside yesterday at which time I noted active synovitis of left second and third MCP with pain of right should er. I started her on oral prednisone 20 mg daily until she can be evaluated as outpatient by Dr. Muniz. I ordered a complete connective tissue disease panel. Pertinent labs 03/12/22: HIGH ESR 64, normal CMP, HIGH CRP 19.3, essentially normal microscopic urinalysis, urine protein creatinine ratio 0.317, normal CBC, negative rheumatoid factor, negative CCP, POSITIVE ELMER, negative SSA and SSB, PO SITIVE DURON 2.0, negative [employer], negative SCL70, POSITIVE DS DNA 135, negative centromere, negative thyroid peroxidase antibodies, POSITIVE ANTI CARDIOLIPIN IgG 36.1, POSITIVE CARDIOLIPIN IgA 18.9, negative cardiolipin IgM, normal C3 and C4. Patient was Evaluated at bedside. She has received 2 doses of prednisone 20 mg daily. She is feeling better continues to have slight pain and swelling of left second MCP and difficulty breathing with exertion. She recently spoke with hematology and her plan is to discharge tomorrow on Lovenox and will eventually transition to Coumadin. Exam: Mild synovitis left second MCP, diminished lung sounds bilaterally Labs are consistent with active SLE . As patient continues to have slight synovitis, high inflammatory markers, bilateral pleural effusions, I would like to increase prednisone to 20mg twice daily. Our plan remains the same that patient will schedule new patient exam with our office at discharge. Review of Systems Respiratory: Reports dyspnea, Reports pain on inspiration Musculoskeletal: left: hand pain, hand swelling Past Medical History Additional Past Medical History / Comment(s): LUPUS, RA History of Any Multi-Drug Resistant Organisms: None Reported Past Surgical History: No Surgical Hx Reported Past Anesthesia/Blood Transfusion Reactions: No Reported Reaction Past Psychological History: No Psychological Hx Reported Smoking Status: Never smoker Past Alcohol Use History: None Reported Past Drug Use History: None Reported Medications and Allergies Home Medications Medication Instructions Recorded Confirmed Type Acetaminophen [Tylenol Extra 1,000 mg PO Q6H PRN 03/10/22 03/10/22 History Strength] Azithromycin [Zithromax Z-pack (6 See Taper PO DIRECTED 03/10/22 03/10/22 History tabs)] Acetaminophen Tab [Tylenol] 650 mg PO Q6HR PRN tab 03/12/22 Rx Sennosides-Docusate Sodium 1 each PO BID tab 03/12/22 Rx [Senokot-S] Enoxaparin [Lovenox] 60 mg SQ Q12H #20 each 03/13/22 Rx Warfarin [Coumadin] 5 mg PO DAILY #30 tab 03/13/22 Rx Allergies Allergy/AdvReac Type Severity Reaction Status Date / Time No Known Allergies Allergy Verified 03/10/22 17:59 Physical Exam Vitals: Vital Signs Temp Pulse Resp BP Pulse Ox 03/13/22 09:44 98.2 F 89 16 105/66 100 03/13/22 04:00 98.6 F 80 15 99/64 100 03/12/22 23:41 97.5 F L 89 15 101/64 97 03/12/22 20:00 98.2 F 120 H 14 91/53 99 03/12/22 16:00 98.6 F 110 H 18 104/67 03/12/22 14:00 94 18 Intake and Output 03/12/22 03/13/22 03/13/22 22:59 06:59 14:59 Intake Total 78.232 285.058 Balance 78.232 285.058 Intake: Intake, IV Titration 78.232 165.058 Amount Heparin Sod,Pork in 0.45% 78.232 165.058 NaCl 25,000 unit In 0.45 % NaCl 1 250ml.bag @ 18 UNITS/KG/HR 11.431 mls/hr IV .[id number] [facility] Rx#: [id number] Oral 120 Other: Voiding Method Toilet Toilet # Voids 4 - Constitutional General appearance: average body habitus, cooperative - EENT Eyes: PERRLA ENT: normal oropharynx Ears: bilateral: normal - Neck Neck: normal ROM - Respiratory Respiratory: bilateral: diminished - Cardiovascular Rhythm: regular Heart sounds: normal: S1, S2 - Gastrointestinal General gastrointestinal: normal bowel sounds - Integumentary Integumentary: normal - Neurologic Neurologic: CNII-XII intact - Musculoskeletal Musculoskeletal: gait normal - Psychiatric Psychiatric: A&O x's 3 (mild synovitis left 2nd MCP ) Results CBC & Chem 7: 03/13/22 09:35 03/13/22 09:35 Labs: Abnormal Lab Results - Last 24 Hours (Table) 03/12/22 03/12/22 03/12/22 Range/Units 07:44 14:39 15:00 ESR (0-20) mm/hr APTT (22.0-30.0) sec Sodium (137-145) mmol/L Glucose (74-99) mg/dL C-Reactive Protein (<1.0) mg/dL Ur Leukocyte Esterase Small H (Negative) Urine Bacteria Rare H (None) /hpf Urine Mucus Rare H (None) /hpf ELMER Screen POSITIVE A (NEGATIVE) Anti-Duron Interpret POSITIVE A (NEGATIVE) Double Strand DNA Ab POSITIVE A (NEGATIVE) Cardiolipin IgG Interp Positive A (NEGATIVE) Cardiolipin IgA Interp POSITIVE A (NEGATIVE) 03/12/22 03/12/22 03/12/22 Range/Units 15:34 15:34 21:22 ESR 64 H (0-20) mm/hr APTT (22.0-30.0) sec Sodium 131 L (137-145) mmol/L Glucose 119 H (74-99) mg/dL C-Reactive Protein 19.3 H (<1.0) mg/dL Ur Leukocyte Esterase (Negative) Urine Bacteria (None) /hpf Urine Mucus (None) /hpf ELMER Screen (NEGATIVE) Anti-Duron Interpret (NEGATIVE) Double Strand DNA Ab (NEGATIVE) Cardiolipin IgG Interp (NEGATIVE) Cardiolipin IgA Interp (NEGATIVE) 03/13/22 03/13/22 Range/Units 09:35 09:35 ESR (0-20) mm/hr APTT 36.5 H (22.0-30.0) sec Sodium (137-145) mmol/L Glucose 106 H (74-99) mg/dL C-Reactive Protein (<1.0) mg/dL Ur Leukocyte Esterase (Negative) Urine Bacteria (None) /hpf Urine Mucus (None) /hpf ELMER Screen (NEGATIVE) Anti-Duron Interpret (NEGATIVE) Double Strand DNA Ab (NEGATIVE) Cardiolipin IgG Interp (NEGATIVE) Cardiolipin IgA Interp (NEGATIVE)
--- NOTE | 2022-03-13 13:32 | P.CNPUL ---
History of Present Illness Consult date: 03/13/22 Reason for consult: pulmonary embolism History of present illness: I was consulted on this patient's was 26 years of age is currently diagnosed h aving acute lupus with anti-cardiolipin syndrome. The patient has no previous history of DVT or pulmonary embolism. The patient comes in today because of shortness of breath and some pleurisy and further investigation revealed that the patient has a left lower extremity DVT and the patient was also found to have but the pulmonary embolism, no evidence of any right-sided strain pattern and the pulmonary emboli were essentially scattered without evidence of any RV strain. There are also areas of groundglass locally to peripheral pulmonary infiltrates bilaterally. The echo of the heart showed a preserved LV function, no evidence of any significant pulmonary hypertension, ejection fraction is on 55-60%, RV was at the upper limit of normal. The patient is currently on IV heparin. The patient is going to be transitioned to a combination of Lovenox and warfarin. The patient has been active. No recent surgeries. No history of malignancy. She has not had any abortions or pregnancies. She has history of childhood rheumatoid arthritis, juvenile rheumatoid arthritis and lupus. Her lashonda pus has been essentially inactive in stable and she has not been receiving any treatment. Recently, she started having increased synovitis involving the fingers of the shoulders and she also developed some skin lesions over the elbows and the buttocks area. No malar rash. The connective tissue disease workup was done and the patient was found to have a positive ELMER, positive anti- Duron antibodies, positive under the vicinity and a, and had anti-cardial lipid antibodies were positive, IgG of 36.1 and her IgA was 18.9. The IgM anti- cardiolipin antibodies were negative and the Levels are essentially normal. No renal insufficiency. The patient was started on prednisone 20 mg by mouth daily . The patient is also being anticoagulated. Her current pulse ox 90% on room air and the repeat chest x-ray was done and showed small bilateral pleural effusions that increased in size in the right lung is stable on the left along with some atelectatic changes. The patient does have an incentive spirometer. Review of Systems CONSTITUTIONAL: No fever, no malaise, no fatigue. HEENT: No recent visual problems or hearing problems. Denied any sore throat. CARDIOVASCULAR: No orthopnea, PND, no palpitations, no syncope. PULMONARY: As mentioned in HPI GASTROINTESTINAL: No diarrhea, no nausea, no vomiting, no abdominal pain. NEUROLOGICAL: No headaches, no weakness, no numbness. HEMATOLOGICAL: Denies any bleeding or petechiae. GENITOURINARY: Denies any burning micturition, frequency, or urgency. MUSCULOSKELETAL/RHEUMATOLOGICAL: Denies any joint pain, swelling, or any muscle pain. ENDOCRINE: Denies any polyuria or polydipsia. The rest of the 14-point review of systems is negative. Past Medical History Additional Past Medical History / Comment(s): LUPUS, RA History of Any Multi-Drug Resistant Organisms: None Reported Past Surgical History: No Surgical Hx Reported Past Anesthesia/Blood Transfusion Reactions: No Reported Reaction Past Psychological History: No Psychological Hx Reported Smoking Status: Never smoker Past Alcohol Use History: None Reported Past Drug Use History: None Reported Medications and Allergies Home Medications Medication Instructions Recorded Confirmed Type Acetaminophen [Tylenol Extra 1,000 mg PO Q6H PRN 03/10/22 03/10/22 History Strength] Azithromycin [Zithromax Z-pack (6 See Taper PO DIRECTED 03/10/22 03/10/22 History tabs)] Acetaminophen Tab [Tylenol] 650 mg PO Q6HR PRN tab 03/12/22 Rx Sennosides-Docusate Sodium 1 each PO BID tab 03/12/22 Rx [Senokot-S] Enoxaparin [Lovenox] 60 mg SQ Q12H #20 each 03/13/22 Rx Warfarin [Coumadin] 5 mg PO DAILY #30 tab 03/13/22 Rx Allergies Allergy/AdvReac Type Severity Reaction Status Date / Time No Known Allergies Allergy Verified 03/10/22 17:59 Physical Exam Vitals: Vital Signs Temp Pulse Resp BP Pulse Ox 03/13/22 12:00 79 16 116/77 98 03/13/22 09:44 98.2 F 89 16 105/66 100 03/13/22 08:00 89 16 03/13/22 04:00 98.6 F 80 15 99/64 100 03/12/22 23:41 97.5 F L 89 15 101/64 97 03/12/22 20:00 98.2 F 120 H 14 91/53 99 03/12/22 16:00 98.6 F 110 H 18 104/67 03/12/22 14:00 94 18 Intake and Output 03/12/22 03/13/22 03/13/22 22:59 06:59 14:59 Intake Total 78.232 285.058 Balance 78.232 285.058 Intake: Intake, IV Titration 78.232 165.058 Amount Heparin Sod,Pork in 0.45% 78.232 165.058 NaCl 25,000 unit In 0.45 % NaCl 1 250ml.bag @ 18 UNITS/KG/HR 11.431 mls/hr IV .[id number] [facility] Rx#: [id number] Oral 120 Other: Voiding Method Toilet Toilet Toilet # Voids 4 GENERAL: The patient is alert and oriented x3, not in any acute distress. Well developed, well nourished. The patient's breathing is nonlabored and the patient has been on room air oxygen Head exam was generally normal. There was no scleral icterus or corneal arcus. Mucous membranes were moist. HEENT: Pupils are round and equally reacting to light. EOMI. No scleral icterus. No conjunctival pallor. Normocephalic, atraumatic. No pharyngeal erythema. No thyromegaly. CARDIOVASCULAR: S1 and S2 present. No murmurs, rubs, or gallops. PULMONARY: Chest is clear to auscultation, no wheezing or crackles. The patient diminished breath sound lung bases bilaterally and the patient has weak respiratory efforts. ABDOMEN: Soft, nontender, nondistended, normoactive bowel sounds. No palpable organomegaly. MUSCULOSKELETAL: No joint swelling or deformity. EXTREMITIES: No cyanosis, clubbing, or pedal edema. NEUROLOGICAL: Gross neurological examination did not reveal any focal deficits. Examination of the skin revealed no evidence of significant rashes, suspicious appearing nevi or other concerning lesions. There is some raised erythematous lesions over the elbows bilaterally to be related to lupus. Results - Laboratory Findings CBC and BMP: 03/13/22 09:35 03/13/22 09:35 PT/INR, D-dimer PT 10.7 sec (9.0-12.0) 03/10/22 13:20 INR 1.0 (<1.2) 03/10/22 13:20 D-Dimer 6.60 mg/L FEU (<0.60) H 03/10/22 15:05 Abnormal lab findings: Abnormal Labs 03/10/22 03/10/22 03/10/22 13:20 13:20 13:20 Neutrophils # 8.5 H Lymphocytes # ESR APTT 36.0 H D-Dimer Sodium 136 L Glucose C-Reactive Protein Ur Leukocyte Esterase Urine Bacteria Urine Mucus ELMER Screen Anti-Duron Interpret Double Strand DNA Ab Cardiolipin IgG Interp Cardiolipin IgA Interp 03/10/22 03/10/22 03/11/22 15:05 23:08 08:02 Neutrophils # Lymphocytes # 0.9 L ESR APTT >200.0 H* D-Dimer 6.60 H Sodium Glucose C-Reactive Protein Ur Leukocyte Esterase Urine Bacteria Urine Mucus ELMER Screen Anti-Duron Interpret Double Strand DNA Ab Cardiolipin IgG Interp Cardiolipin IgA Interp 03/11/22 03/12/22 03/12/22 08:02 07:44 07:44 Neutrophils # Lymphocytes # ESR APTT 61.5 H 60.2 H D-Dimer Sodium Glucose C-Reactive Protein Ur Leukocyte Esterase Urine Bacteria Urine Mucus ELMER Screen Anti-Duron Interpret Double Strand DNA Ab Cardiolipin IgG Interp Positive A Cardiolipin IgA Interp POSITIVE A 03/12/22 03/12/22 03/12/22 14:39 15:00 15:34 Neutrophils # Lymphocytes # ESR 64 H APTT D-Dimer Sodium Glucose C-Reactive Protein Ur Leukocyte Esterase Small H Urine Bacteria Rare H Urine Mucus Rare H ELMER Screen POSITIVE A Anti-Duron Interpret POSITIVE A Double Strand DNA Ab POSITIVE A Cardiolipin IgG Interp Cardiolipin IgA Interp 03/12/22 03/12/22 03/13/22 15:34 21:22 09:35 Neutrophils # Lymphocytes # ESR APTT 36.5 H D-Dimer Sodium 131 L Glucose 119 H C-Reactive Protein 19.3 H Ur Leukocyte Esterase Urine Bacteria Urine Mucus ELMER Screen Anti-Duron Interpret Double Strand DNA Ab Cardiolipin IgG Interp Cardiolipin IgA Interp 03/13/22 09:35 Neutrophils # Lymphocytes # ESR APTT D-Dimer Sodium Glucose 106 H C-Reactive Protein Ur Leukocyte Esterase Urine Bacteria Urine Mucus ELMER Screen Anti-Duron Interpret Double Strand DNA Ab Cardiolipin IgG Interp Cardiolipin IgA Interp - Diagnostic Findings Chest x-ray: image reviewed CT scan - chest: image reviewed Assessment and Plan Plan: 1 acute bilateral pulmonary embolism with left lower extremity DVT, unprovoked, underlying risk factors being lupus with anti-cardiolipid syndrome 2 antiphospholipid syndrome with positive anti-cardial lipid antibodies. 3 SLE with secondary synovitis and arthritis 4 shortness of breath and pleurisy secondary to above. The patient also areas of patchy groundglass pulmonary infiltrates bilaterally. Consider possibility of pulmonary embolism with secondary early infarct. Possibility of lupus pneumonitis cannot be completely this included. The patient is currently on room air oxygen with pulse ox of 98% and shortness of breath essentially impr oving 5 right-sided pleural effusion, small, could be related to lupus pleurisy versus pulmonary embolism 6 history of juvenile rheumatoid arthritis 7 elevated sedimentation rate 8 left lower extremity DVT Plan Anticoagulation per hematology. The patient is going to go home on a combination of Lovenox and warfarin as the data on NOAC agents are limited and this condition Patient will need long-term anticoagulation for condition Provide patient incentive spirometer Monitor the pleural effusion Monitor the pulmonary infiltrates and those are mostly secondary pulmonary embolism. Lupus pneumonitis is felt to be less likely. Continue prednisone 20 mg by mouth twice a day regarding acute lupus synovitis and joint pain No need for antibiotics Increase mobility We'll continue to follow
[2022-03-13 13:51] LABS: C-ANCA <1:20 Titer (<1:20)
[2022-03-13 13:52] LABS: APTT >180 Sec(s) (<43); APTT 1:1 Mix 95 Sec(s) (<43); DRVVT 1:1 Mix 87 Sec(s) (<44); DRVVT Confirmation Positive (Negative); Dilute Russell Viper Venom 112 Sec(s) (<44); Hexagonal Phase Neutralization Positive (Negative)
--- NOTE | 2022-03-13 14:54 | P.PN ---
Subjective Progress Note Date: 03/13/22 This is a 26-year-old female admitted with left lower extremity DVT, scattered PEs in a patient with history of juvenile rheumatoid arthritis, lupus and multiple other medical issues. Maintained on anticoagulation on heparin drip. Maintaining O2 sats up to 100% on room air. Tachycardia with heart rates up to 120 with exertion, reports accompanied by exertional shortness of breath. Complains of pain with deep inspiration, relieved with [place]. Evaluated by vascular surgery was CT reviewed, reporting no evidence of right heart strain. Denies any chest pain, palpitations. 03/13/2022 anticoagulation as per hematology, continues on heparin drip with plans to transition to Lovenox and Coumadin .Ambulated yesterday afternoon, tolerating exertion better. Chest x-ray yesterday reporting small bilateral pleural effusions increased in size in the right lung and stable on the left with worsening right basilar acute atelectasis and/or infiltrate noted. Empiric antibiotics initiated. Inflammatory markers elevated, ESR 64, CRP 19.3. Maintaining O2 sats of 100% on room air. Afebrile. Maintained on IV fluid hydration, sodium pending/labs pending. Objective - Vital Signs Vital signs: Vital Signs Temp 98.2 F 03/13/22 09:44 Pulse 79 03/13/22 12:00 Resp 16 03/13/22 12:00 BP 116/77 03/13/22 12:00 Pulse Ox 98 03/13/22 12:00 FiO2 21 03/11/22 07:35 Intake & Output 03/12/22 03/13/22 03/13/22 18:59 06:59 18:59 Intake Total 701.213 525.058 Output Total 300 Balance 401.213 525.058 Intake: Intake, IV Titration 221.213 165.058 Amount Heparin Sod,Pork in 0.45% 221.213 165.058 NaCl 25,000 unit In 0.45 % NaCl 1 250ml.bag @ 18 UNITS/KG/HR 11.431 mls/hr IV .[id number] [facility] Rx#: [id number] Oral 480 360 Output: Urine 300 Other: Voiding Method Toilet Toilet Toilet # Voids 4 - Exam PHYSICAL EXAM: VITAL SIGNS: [As above] GENERAL: Alert and oriented 3, Sitting up in bed, no acute distress HEENT: Conjunctivae normal. eyes normal. MMM. NECK: No JVD. No thyroid enlargement. No LNs CARDIOVASCULAR: S1, S2 regular. No murmur RESPIRATION: Nonlabored, Breath sounds diminished in the bases. ABDOMEN: Soft, nontender . No guarding. no masses palpable. Positive bowel sounds. LEGS: No edema. no swelling MUSCULOSKELETAL: No joint swelling. NERVOUS SYSTEM: Cranial N 2-12 grossly normal.No focal deficits. Strength and sensation grossly intact. Skin: Warm and dry, no rash except for reddened elbow lesions - Labs CBC & Chem 7: 03/13/22 09:35 03/13/22 09:35 Labs: Abnormal Lab Results - Last 24 Hours (Table) 03/12/22 03/12/22 03/12/22 Range/Units 07:44 07:44 14:39 ESR (0-20) mm/hr APTT (22.0-30.0) sec Lupus Anticoag aPTT >180 H (<43) Sec(s) Lupus Anticoag PTT Mix 95 H (<43) Sec(s) Dil Chris Viper Venom 112 H (<44) Sec(s) LA dRVVT Confirm Positive A (Negative) dRVVT 50:50 87 H (<44) Sec(s) Lupus Hexagonal Phase Positive A (Negative) Sodium (137-145) mmol/L Glucose (74-99) mg/dL C-Reactive Protein (<1.0) mg/dL Ur Leukocyte Esterase (Negative) Urine Bacteria (None) /hpf Urine Mucus (None) /hpf ELMER Screen POSITIVE A (NEGATIVE) Anti-Duron Interpret POSITIVE A (NEGATIVE) Double Strand DNA Ab POSITIVE A (NEGATIVE) Cardiolipin IgG Interp Positive A (NEGATIVE) Cardiolipin IgA Interp POSITIVE A (NEGATIVE) 03/12/22 03/12/22 03/12/22 Range/Units 15:00 15:34 15:34 ESR 64 H (0-20) mm/hr APTT (22.0-30.0) sec Lupus Anticoag aPTT (<43) Sec(s) Lupus Anticoag PTT Mix (<43) Sec(s) Dil Chris Viper Venom (<44) Sec(s) LA dRVVT Confirm (Negative) dRVVT 50:50 (<44) Sec(s) Lupus Hexagonal Phase (Negative) Sodium (137-145) mmol/L Glucose (74-99) mg/dL C-Reactive Protein 19.3 H (<1.0) mg/dL Ur Leukocyte Esterase Small H (Negative) Urine Bacteria Rare H (None) /hpf Urine Mucus Rare H (None) /hpf ELMER Screen (NEGATIVE) Anti-Duron Interpret (NEGATIVE) Double Strand DNA Ab (NEGATIVE) Cardiolipin IgG Interp (NEGATIVE) Cardiolipin IgA Interp (NEGATIVE) 03/12/22 03/13/22 03/13/22 Range/Units 21:22 09:35 09:35 ESR (0-20) mm/hr APTT 36.5 H (22.0-30.0) sec Lupus Anticoag aPTT (<43) Sec(s) Lupus Anticoag PTT Mix (<43) Sec(s) Dil Chris Viper Venom (<44) Sec(s) LA dRVVT Confirm (Negative) dRVVT 50:50 (<44) Sec(s) Lupus Hexagonal Phase (Negative) Sodium 131 L (137-145) mmol/L Glucose 119 H 106 H (74-99) mg/dL C-Reactive Protein (<1.0) mg/dL Ur Leukocyte Esterase (Negative) Urine Bacteria (None) /hpf Urine Mucus (None) /hpf ELMER Screen (NEGATIVE) Anti-Duron Interpret (NEGATIVE) Double Strand DNA Ab (NEGATIVE) Cardiolipin IgG Interp (NEGATIVE) Cardiolipin IgA Interp (NEGATIVE) Assessment and Plan Assessment: Acute Bilateral pulmonary embolism Acute left lower extremity DVT Right-sided pleural effusion Possible lupus pneumonitis SLE Antiphospholipid syndrome Rheumatoid arthritis, juvenile Plan: Continue on current medication regime ,monitoring and symptomatic treatment. Anticoagulation as per hematology, discussing, Lovenox and warfarin secondary to antiphospholipid syndrome /NOAC agents data limited. Pulmonary and rheumatology consults in place, recommendations pending. Discharge planning in progress for tomorrow. The impression and plan of care has been dictated as directed. : I performed a history and examination of this patient, discussed the same with the dictator. I agree with the dictator's note ,documented as a scribe. Any additional findings or plans will be noted.
[2022-03-13] MEDS: HEPARIN SOD,PORK IN 0.45% NACL 25,000 UNIT in 0.45% NACL 1 250ML.BAG IV SCH (16:54)
--- NOTE | 2022-03-13 17:40 | P.PN ---
Subjective Progress Note Date: 03/13/22 Principal diagnosis: Pulmonary Embolism and LLE DVT In f/u today pt is doing well, pain is controlled, she can ambulate short distances without chest pain, SOB. No bleeding to report Objective - Vital Signs Vital signs: Vital Signs Temp 98.2 F 03/13/22 09:44 Pulse 89 03/13/22 09:44 Resp 16 03/13/22 09:44 BP 105/66 03/13/22 09:44 Pulse Ox 100 03/13/22 09:44 FiO2 21 03/11/22 07:35 Intake & Output 03/12/22 03/13/22 03/13/22 18:59 06:59 18:59 Intake Total 701.213 285.058 Output Total 300 Balance 401.213 285.058 Intake: Intake, IV Titration 221.213 165.058 Amount Heparin Sod,Pork in 0.45% 221.213 165.058 NaCl 25,000 unit In 0.45 % NaCl 1 250ml.bag @ 18 UNITS/KG/HR 11.431 mls/hr IV .[id number] [facility] Rx#: [id number] Oral 480 120 Output: Urine 300 Other: Voiding Method Toilet Toilet # Voids 4 - Constitutional General appearance: Present: average body habitus, cooperative, no acute distress - EENT Eyes: Present: anicteric sclerae, EOMI ENT: Present: hearing grossly normal - Respiratory Details: resp even and unlabored - Integumentary Integumentary: Present: normal - Neurologic Neurologic: Present: CNII-XII intact - Musculoskeletal Musculoskeletal: Present: strength equal bilaterally - Psychiatric Psychiatric: Present: A&O x's 3, appropriate affect, intact judgment & insight - Labs CBC & Chem 7: 03/13/22 09:35 03/13/22 09:35 Labs: Abnormal Lab Results - Last 24 Hours (Table) 03/12/22 03/12/22 03/12/22 Range/Units 07:44 14:39 15:00 ESR (0-20) mm/hr APTT (22.0-30.0) sec Sodium (137-145) mmol/L Glucose (74-99) mg/dL C-Reactive Protein (<1.0) mg/dL Ur Leukocyte Esterase Small H (Negative) Urine Bacteria Rare H (None) /hpf Urine Mucus Rare H (None) /hpf ELMER Screen POSITIVE A (NEGATIVE) Anti-Duron Interpret POSITIVE A (NEGATIVE) Double Strand DNA Ab POSITIVE A (NEGATIVE) Cardiolipin IgG Interp Positive A (NEGATIVE) Cardiolipin IgA Interp POSITIVE A (NEGATIVE) 03/12/22 03/12/22 03/12/22 Range/Units 15:34 15:34 21:22 ESR 64 H (0-20) mm/hr APTT (22.0-30.0) sec Sodium 131 L (137-145) mmol/L Glucose 119 H (74-99) mg/dL C-Reactive Protein 19.3 H (<1.0) mg/dL Ur Leukocyte Esterase (Negative) Urine Bacteria (None) /hpf Urine Mucus (None) /hpf ELMER Screen (NEGATIVE) Anti-Duron Interpret (NEGATIVE) Double Strand DNA Ab (NEGATIVE) Cardiolipin IgG Interp (NEGATIVE) Cardiolipin IgA Interp (NEGATIVE) 03/13/22 03/13/22 Range/Units 09:35 09:35 ESR (0-20) mm/hr APTT 36.5 H (22.0-30.0) sec Sodium (137-145) mmol/L Glucose 106 H (74-99) mg/dL C-Reactive Protein (<1.0) mg/dL Ur Leukocyte Esterase (Negative) Urine Bacteria (None) /hpf Urine Mucus (None) /hpf ELMER Screen (NEGATIVE) Anti-Duron Interpret (NEGATIVE) Double Strand DNA Ab (NEGATIVE) Cardiolipin IgG Interp (NEGATIVE) Cardiolipin IgA Interp (NEGATIVE) - Imaging and Cardiology Chest x-ray: report reviewed ECHO report reviewed Assessment and Plan (1) Antiphospholipid antibody positive Current Visit: Yes Status: Acute Priority: High Code(s): R76.0 - RAISED ANTIBODY TITER SNOMED Code(s): 712705385 (2) Left leg DVT Current Visit: Yes Status: Acute Priority: High Code(s): I82.402 - ACUTE EMBOLISM AND THOMBOS UNSP DEEP VEINS OF L LOW EXTREM SNOMED Code(s): 831782655 (3) Pulmonary embolism Current Visit: Yes Status: Acute Priority: High Code(s): I26.99 - OTHER PULMONARY EMBOLISM WITHOUT ACUTE COR PULMONALE SNOMED Code(s): 61807965 Plan: Hematology recs: Lovenox 60mg SQ BID while transitioning to coumadin. START COUMADIN ON SaturdayFebruary, take at dinner time. Lab draw SaturdayMarch 20 at 9AM. Location [address] [place] [address], 2nd floor. Take a baby aspirin (81mg) daily Discussed bleeding precautions, medical alert bracelet, non-hormonal c ontrol, avoidance of on coumadin due to high risk defects, loss of . All of the above was discussed with patient and her mother. All questions answered to their satisfaction. This has also all been documented in the discharge plan. Communication orders sent to Nursing for transition from heparin drip to Lovenox. Prescriptions have been sent to patient pharmacy. Communication order to analytical manager for copay verification Attests: I have performed H&P, seen and examined pt, developed impression and plan of care. Discussed with dictator. Agree with dictation, documented as a scribe.
[2022-03-13] MEDS: ENOXAPARIN 60 MG/0.6 ML SYRINGE SQ SCH (20:39)
[2022-03-13 22:37] VITALS: TEMP 97.7
[2022-03-14] MEDS: SODIUM CHLORIDE 0.9% 1,000 ML IV SCH (06:15)
[2022-03-14] MEDS: predniSONE 20 MG TAB PO SCH (08:17)
[2022-03-14] MEDS: SENNOSIDES-DOCUSATE SODIUM 1 EACH TAB PO SCH (08:17)
[2022-03-14] MEDS: ENOXAPARIN 60 MG/0.6 ML SYRINGE SQ SCH (08:18)
[2022-03-14] MEDS ORDERED: ASPIRIN 81 MG PO SCH (09:00)
--- NOTE | 2022-03-14 11:01 | P.PN ---
Subjective Progress Note Date: 03/14/22 I was consulted on this patient's was 26 years of age is currently diagnosed having acute lupus with anti-cardiolipin syndrome. The patient has no previous history of DVT or pulmonary embolism. The patient comes in today because of shortness of breath and some pleurisy and further investigation revealed that the patient has a left lower extremity DVT and the patient was also found to have but the pulmonary embolism, no evidence of any right-sided strain pattern and the pulmonary emboli were essentially scattered without evidence of any RV strain. There are also areas of groundglass locally to peripheral pulmonary infiltrates bilaterally. The echo of the heart showed a preserved LV function, no evidence of any significant pulmonary hypertension, ejection fraction is on 55-60%, RV was at the upper limit of normal. The patient is currently on IV heparin. The patient is going to be transitioned to a combination of Lovenox and warfarin. The patient has been active. No recent surgeries. No history of malignancy. She has not had any abortions or pregnancies. She has history of childhood rheumatoid arthritis, juvenile rheumatoid arthritis and lupus. Her lupus has been essentially inactive in stable and she has not been receiving any treatment. Recently, she started having increased synovitis involving the fingers of the shoulders and she also developed some skin lesions over the elbows and the buttocks area. No malar rash. The connective tissue disease workup was done and the patient was found to have a positive ELMER, positive anti- Duron antibodies, positive under the vicinity and a, and had anti-cardial lipid antibodies were positive, IgG of 36.1 and her IgA was 18.9. The IgM anti- cardiolipin antibodies were negative and the Levels are essentially normal. No renal insufficiency. The patient was started on prednisone 20 mg by mouth daily. The patient is also being anticoagulated. Her current pulse ox 90% on room air and the repeat chest x-ray was done and showed small bilateral pleural effusions that increased in size in the right lung is stable on the left along with some atelectatic changes. The patient does have an incentive spirometer. 03/14/2022, the patient is using incentive spirometer and she is pulling approximately a 1000. He was taken off IV heparin and she was given Lovenox therapeutic doses in combination with warfarin and this will be used as a bridging therapy. No complaints. Using incentive spirometer. A repeat chest x-ray will be done today. No evidence of bleeding. Source has subsided significantly. That hemoglobin today is at 12 with a white cell count of 6.9. Still on prednisone at a dose was increased up to 20 mg twice a day and she has improvement in her joint. Repeat chest x-ray was ordered. Discharge planning is in progress. Objective - Vital Signs Vital signs: Vital Signs Temp 97.7 F 03/14/22 08:24 Pulse 69 03/14/22 08:24 Resp 16 03/14/22 08:24 BP 111/72 03/14/22 08:24 Pulse Ox 100 03/14/22 08:24 FiO2 21 03/11/22 07:35 Intake & Output 03/13/22 03/14/22 03/14/22 18:59 06:59 18:59 Intake Total 617.147 2308 420 Balance 396.447 5671 420 Intake: Intake, IV Titration 011.818 2539 Amount Heparin Sod,Pork in 0.45% 165.058 NaCl 25,000 unit In 0.45 % NaCl 1 250ml.bag @ 18 UNITS/KG/HR 11.431 mls/hr IV .[id number] [facility] Rx#: [id number] Sodium Chloride 0.9% 1, 1000 000 ml @ 50 mls/hr IV . Q20H [facility] Rx#:[id number] Oral 480 970 420 Other: Voiding Method Toilet Toilet Toilet # Voids 2 - Exam GENERAL: The patient is alert and oriented x3, not in any acute distress. Well developed, well nourished. The patient's breathing is nonlabored and the patient has been on room air oxygen Head exam was generally normal. There was no scleral icterus or corneal arcus. Mucous membranes were moist. HEENT: Pupils are round and equally reacting to light. EOMI. No scleral icterus. No conjunctival pallor. Normocephalic, atraumatic. No pharyngeal erythema. No thyromegaly. CARDIOVASCULAR: S1 and S2 present. No murmurs, rubs, or gallops. PULMONARY: Chest is clear to auscultation, no wheezing or crackles. The patient diminished breath sound lung bases bilaterally and the patient has weak respiratory efforts. ABDOMEN: Soft, nontender, nondistended, normoactive bowel sounds. No palpable organomegaly. MUSCULOSKELETAL: No joint swelling or deformity. EXTREMITIES: No cyanosis, clubbing, or pedal edema. NEUROLOGICAL: Gross neurological examination did not reveal any focal deficits. Examination of the skin revealed no evidence of significant rashes, suspicious appearing nevi or other concerning lesions. There is some raised erythematous lesions over the elbows bilaterally to be related to lupus. - Labs CBC & Chem 7: 03/13/22 09:35 03/13/22 09:35 Labs: Abnormal Lab Results - Last 24 Hours (Table) 03/12/22 03/13/22 03/13/22 Range/Units 07:44 09:35 17:37 APTT 36.5 H 41.0 H (22.0-30.0) sec Lupus Anticoag aPTT >180 H (<43) Sec(s) Lupus Anticoag PTT Mix 95 H (<43) Sec(s) Dil Chris Viper Venom 112 H (<44) Sec(s) LA dRVVT Confirm Positive A (Negative) dRVVT 50:50 87 H (<44) Sec(s) Lupus Hexagonal Phase Positive A (Negative) Assessment and Plan Plan: 1 acute bilateral pulmonary embolism with left lower extremity DVT, unprovoked, underlying risk factors being lupus with anti-cardiolipid syndrome 2 antiphospholipid syndrome with positive anti-cardial lipid antibodies. 3 SLE with secondary synovitis and arthritis 4 shortness of breath and pleurisy secondary to above. The patient also areas of patchy groundglass pulmonary infiltrates bilaterally. Consider possibility of pulmonary embolism with secondary early infarct. Possibility of lupus pneumonitis cannot be completely this included. The patient is currently on room air oxygen with pulse ox of 98% and shortness of breath essentially improving 5 right-sided pleural effusion, small, could be related to lupus pleurisy versus pulmonary embolism 6 history of juvenile rheumatoid arthritis 7 elevated sedimentation rate 8 left lower extremity DVT Plan Lovenox in combination with warfarin and Lovenox will be used for bridging therapy and the patient will be having her PT/INR congested on outpatient basis Patient will need long-term anticoagulation for condition Provide patient incentive spirometer Monitor the pleural effusion and repeat chest x-ray will be done today Monitor the pulmonary infiltrates and those are mostly secondary pulmonary embolism. Lupus pneumonitis is felt to be less likely. Continue prednisone 20 mg by mouth twice a day regarding acute lupus synovitis and joint pain, and her symptoms are not improved No need for antibiotics Increase mobility We'll continue to follow, possible home today.
--- NOTE | 2022-03-14 11:22 | XR ---
EXAMINATION TYPE: XR chest 2V DATE OF EXAM: 03/14/2022 COMPARISON: 03/12/2022 INDICATION: Short of breath TECHNIQUE: Frontal and lateral views of the chest are obtained. FINDINGS: The heart size is normal. The pulmonary vasculature is normal. There is a small right pleural effusion. Minimal left pleural effusion is present. Findings are stabl e.. IMPRESSION: 1. Small bilateral pleural effusions
[2022-03-14 12:53] VITALS: BP 112/76; PULSE 73
[2022-03-15 15:36] LABS: ANA Pattern Homogeneous
--- NOTE | 2022-03-19 09:18 | P.DS ---
Providers Date of admission: 03/10/22 16:58 Expected date of discharge: 03/14/22 Attending physician: Naman Her Consults: 03/11/22 10:13 Consult Physician Routine Consulting Provider: Jace Molina Consult Reason/Comments: PE/DVT Do you want consulting provider notified?: Yes 03/12/22 10:39 Consult Physician Routine Consulting Provider: Trudy Muniz Consult Reason/Comments: lupus Do you want consulting provider notified?: Yes 03/12/22 21:50 Consult Physician Routine Consulting Provider: Ni Sharif Consult Reason/Comments: cxr results, PE Do you want consulting provider notified?: Yes Primary care physician: Naman Her Hospital Course: Final diagnosis Acute Bilateral pulmonary embolism Acute left lower extremity DVT Right-sided pleural effusion Possible lupus pneumonitis SLE Antiphospholipid syndrome Rheumatoid arthritis, juvenile Discharge disposition Patient is being discharged in a stable condition with guarded prognosis to home. Patient will follow-up with Dr. Her in the outpatient setting upon discharge. Patient is to follow-up with hematology and rheumatology as well along with pulmonary as scheduled. Patient is continued on a Lovenox bridge along with Coumadin and has prescriptions for follow-up labs per hematology. Total time taken is greater than 35 minutes. Hospital course This is a 26-year-old female admitted with left lower extremity DVT and scattered PEs and also with a past medical history of rheumatoid arthritis with multiple other medical issues. Patient was initially initiated on heparin drip with vascular surgery and hematology consulted. No evidence of right heart strain and patient is being transitioned to Lovenox with bridging to Coumadin. Patient will need follow-up with hematology/oncology, pulmonary and rheumatology in the outpatient setting. Patient currently on room air and reporting she would like to go home. Currently no reports of chest pain, no worsening shortness of breath, or palpitations. Patient is afebrile. No reports of nausea or vomiting and patient is tolerating diet. Patient will be discharged home today. On exam vital signs are stable. Cardio S1, S2 are muffled. Respiratory system shows diminished breath sounds at the bases with no wheezing or rhonchi noted. Abdomen is soft and nontender. Nervous system shows no focal deficit. Please refer to medication reconciliation sheet for a list of medications. The impression and plan of care has been dictated by Ciera Manzano, Nurse Practitioner as directed. Dr. Mariusz MD I have performed a history and examination and MDM of this patient, discussed the same with the dictator, and agree with the dictator's assessment and plan as written ,documented as a scribe. Based on total visit time, I have performed more than 50% of the visit. Patient Condition at Discharge: Fair Plan - Discharge Summary Discharge Rx Participant: No New Discharge Prescriptions: New Warfarin [Coumadin] 5 mg PO DAILY #30 tab Aspirin 81 mg PO DAILY 30 Days #30 tab Enoxaparin [Lovenox] 60 mg SQ Q12HR 10 Days #20 each Acetaminophen Tab [Tylenol] 650 mg PO Q6HR PRN tab PRN Reason: Fever and/ or mild Pain Sennosides-Docusate Sodium [Senokot-S] 1 each PO BID tab predniSONE [Deltasone] 20 mg PO BID #20 tab HYDROcodone/APAP 7.5-325MG [[place] 7.5-325] 1 each PO Q6HR PRN #6 tab PRN Reason: Severe Pain Continue Acetaminophen [Tylenol Extra Strength] 1,000 mg PO Q6H PRN PRN Reason: Fever And/ Or Pain Discontinued Azithromycin [Zithromax Z-pack (6 tabs)] See Taper PO DIRECTED Discharge Medication List Acetaminophen [Tylenol Extra Strength] 1,000 mg PO Q6H PRN 03/10/22 [History] Acetaminophen Tab [Tylenol] 650 mg PO Q6HR PRN tab 03/12/22 [Rx] Sennosides-Docusate Sodium [Senokot-S] 1 each PO BID tab 03/12/22 [Rx] Warfarin [Coumadin] 5 mg PO DAILY #30 tab 03/13/22 [Rx] Aspirin 81 mg PO DAILY 30 Days #30 tab 03/14/22 [Rx] Enoxaparin [Lovenox] 60 mg SQ Q12HR 10 Days #20 each 03/14/22 [Rx] HYDROcodone/APAP 7.5-325MG [[place] 7.5-325] 1 each PO Q6HR PRN #6 tab 03/14/22 [Rx] predniSONE [Deltasone] 20 mg PO BID #20 tab 03/14/22 [Rx] Follow up Appointment(s)/Referral(s): Jace Molina MD [STAFF PHYSICIAN] - 03/20/22 9:00 am (This is for INR. WILL NEED MORE FOLLOW UP APPOINTMENTS ) Naman Her DO [Primary Care Provider] - 03/29/22 2:30 pm Trduy Muniz MD [STAFF PHYSICIAN] - 03/21/22 1:45 pm Ni Sharif MD [STAFF PHYSICIAN] - 03/27/22 1:30 pm Patient Instructions/Handouts: Pulmonary Embolism (DC), Deep Vein Thrombosis (DC) Activity/Diet/Wound Care/Special Instructions: Anticoagulation as per Hematology Hematology recs: Lovenox 60mg SQ BID while transitioning to coumadin. START COUMADIN ON SaturdayFebruary,take at dinner time. Lab draw SaturdayMarch 20 at 9AM. Location [address] [place] [address], 2nd floor. Take a baby aspirin (81mg) daily Discussed bleeding precautions, medical alert bracelet, non-hormonal control, avoidance of on coumadin. Discharge/Stand Alone Forms: Work/School Release Discharge Disposition: HOME SELF-CARE
[2022-03-20 16:42] LABS: Alpha-Subunit of Pit Glycoprot 0.2 ng/mL
== END 2022-03-14 15:43 | disposition home or self-care (01) | DRG 299 ==
LOC: EC 11:59 → 3SCARD 16:58
PROVIDERS: ADMIT Family Medicine; ATTEND Family Medicine
DX: I82.412 Acute embolism and thrombosis of left femoral vein (principal); I26.99 Other pulmonary embolism without acute cor pulmonale; D68.61 Antiphospholipid syndrome; J90 Pleural effusion, not elsewhere classified; J98.11 Atelectasis; R04.2 Hemoptysis; I82.442 Acute embolism and thrombosis of left tibial vein; Z86.19 Personal history of other infectious and parasitic diseases; R00.0 Tachycardia, unspecified; Z20.822 Contact with and (suspected) exposure to COVID-19; M08.00 Unspecified juvenile rheumatoid arthritis of unspecified site; Z87.09 Personal history of other diseases of the respiratory system; M65.9 Synovitis and tenosynovitis, unspecified; M32.9 Systemic lupus erythematosus, unspecified; Z86.718 Personal history of other venous thrombosis and embolism; Z86.711 Personal history of pulmonary embolism
CPT/HCPCS: 36415; 71046; 71275; 80053; 81001; 82164; 82570; 83520; 83605; 83880; 84156; 84484; 85025; 85379; 85598; 85610; 85613; 85652; 85730; 85732; 86038; 86039; 86140; 86146; 86147; 86160; 86162; 86200; 86225; 86235; 86255; 86376; 86431; 93005; 93306; 93970; 94760; 96365; 96366; 96372; 99285

== ENCOUNTER 2022-03-28 16:03 | Emergency (ER) | payer OTHER ==
[2022-03-28 16:56] VITALS: BP 133/86; PULSE 100; RESP 16; TEMP 97.3
--- NOTE | 2022-03-28 17:30 | ED ---
General Adult HPI - General Chief complaint: Recheck/Abnormal Lab/Rx Stated complaint: ABN labs Time Seen by Provider: 03/28/22 16:11 Source: patient, RN/MD, RN notes reviewed, old records reviewed Mode of arrival: ambulatory Limitations: no limitations - History of Present Illness Initial comments: Patient is a pleasant 26-year-old female present to the emergency department with concerns for coagulopathy. Outpatient INR greater than 8 off a fingerstick. Case was discussed with practitioner Jennifer who would like patient to have formal INR. He feels it is similar to that likely give her 5 of vitamin K orally. Patient states she did have DVT and pulmonary emboli approximately 2 and half weeks ago. Patient is feeling fine since that time. Patient currently symptom-free, no complaints. No bleeding. - Related Data Home Medications Medication Instructions Recorded Confirmed Hydroxychloroquine Sulfate 200 mg PO HS 03/28/22 03/28/22 [Plaquenil] Warfarin [Coumadin] 5 mg PO W/SUPPER 03/28/22 03/28/22 azaTHIOprine [Imuran] 50 mg PO HS 03/28/22 03/28/22 predniSONE [Deltasone] 10 mg PO Q48H 03/28/22 03/28/22 predniSONE [Deltasone] 20 mg PO Q48H 03/28/22 03/28/22 Previous Rx's Medication Instructions Recorded Aspirin 81 mg PO DAILY 30 Days #30 tab 03/14/22 Allergies Allergy/AdvReac Type Severity Reaction Status Date / Time No Known Allergies Allergy Verified 03/28/22 18:14 Review of Systems ROS Statement: Those systems with pertinent positive or pertinent negative responses have been documented in the HPI. ROS Other: All systems not noted in ROS Statement are negative. Constitutional: Denies: fever Eyes: Denies: eye pain ENT: Denies: ear pain Respiratory: Denies: cough, dyspnea Cardiovascular: Denies: chest pain Endocrine: Denies: fatigue Gastrointestinal: Denies: abdominal pain Genitourinary: Denies: dysuria, hematuria Musculoskeletal: Denies: back pain Skin: Denies: rash Past Medical History Additional Past Medical History / Comment(s): LUPUS, RA History of Any Multi-Drug Resistant Organisms: None Reported Past Surgical History: No Surgical Hx Reported Past Anesthesia/Blood Transfusion Reactions: No Reported Reaction Past Psychological History: No Psychological Hx Reported Smoking Status: Never smoker Past Alcohol Use History: None Reported Past Drug Use History: None Reported General Exam Limitations: no limitations General appearance: alert, in no apparent distress Head exam: Present: normocephalic Eye exam: Present: normal appearance Neck exam: Present: normal inspection Respiratory exam: Present: normal lung sounds bilaterally Cardiovascular Exam: Present: regular rate, normal rhythm GI/Abdominal exam: Present: soft. Absent: tenderness Extremities exam: Present: normal inspection. Absent: pedal edema, calf tenderness Neurological exam: Present: alert Psychiatric exam: Present: normal affect, normal mood Skin exam: Present: normal color Course Vital Signs 03/28/22 16:53 Temperature 97.3 F L Pulse Rate 100 Respiratory 16 Rate Blood Pressure 133/86 O2 Sat by Pulse 100 Oximetry Medical Decision Making - Lab Data Lab Results 03/28/22 Range/Units 17:12 PT 74.9 H (9.0-12.0) sec INR 7.4 H* (<1.2) APTT 55.6 H (22.0-30.0) sec Disposition Clinical Impression: Coagulopathy Disposition: HOME SELF-CARE Condition: Stable Instructions (If sedation given, give patient instructions): Hypercoagulation (ED) Additional Instructions: Hold Coumadin tomorrow. Follow-up tomorrow with hematology for repeat testing and further recommendations. Return for bleeding, difficulty breathing, leg swelling, worsening or change in symptoms or other concerns. Is patient prescribed a controlled substance at d/c from ED?: No Referrals: Naman Her DO [Primary Care Provider] - 1-2 days [place] NPC [Nurse Practitioner] - 1-2 days Time of Disposition: 18:37
[2022-03-28 18:21] LABS: Partial Thromboplastin Time 55.6 sec (22.0-30.0)
[2022-03-28 18:31] LABS: Prothrombin Time 74.9 sec (9.0-12.0)
[2022-03-28 18:34] LABS: INR 7.4 (<1.2)
[2022-03-28] MEDS ORDERED: PHYTONADIONE ORAL 5 MG/5 ML ORAL.SYRG PO STA (18:36)
== END 2022-03-28 19:38 | disposition home or self-care (01) ==
LOC: EC 16:03
DX: D68.9 Coagulation defect, unspecified (principal)
CPT/HCPCS: 36415; 85610; 85730; 99283

== ENCOUNTER → 2022-06-29 | Outpatient (CLI) | payer OTHER ==
--- NOTE | 2022-06-29 10:38 | US ---
EXAMINATION TYPE: US venous doppler duplex LE LT DATE OF EXAM: 06/29/2022 10:18 AM COMPARISON: US CLINICAL HISTORY: SOB R06.02 I82.5Z9 DVT. h/o PE and left leg DVT- follow-up study, pt currently on blood thinners SIDE PERFORMED: Left TECHNIQUE: The lower extremity deep venous system is examined utilizing real time linear array sonog jessica with graded compression, doppler sonography and color-flow sonography. VESSELS IMAGED: Common Femoral Vein Deep Femoral Vein Greater Saphenous Vein * Femoral Vein Popliteal Vein Small Saphenous Vein * Proximal Calf Veins (* superficial vessels) Left Leg: No evidence of acute DVT- chronic non-occluding thrombus within left popliteal vein IMPRESSION: No evidence for DVT.
--- NOTE | 2022-06-29 11:59 | CT ---
EXAMINATION TYPE: CT angio chest DATE OF EXAM: 06/29/2022 11:02 AM COMPARISON: HISTORY: f/u PE CT DLP: 479 mGycm Automated exposure control for dose reduction was used. CONTRAST: CTA scan of the thorax is performed with IV Contrast, patient injected with 63cc mL of Isovue 370, pu lmonary embolism protocol. . FINDINGS: LUNGS: The lungs are grossly clear, there is no concerning parenchymal mass or nodule identified. T here is no pleural effusion or pneumothorax seen. The tracheobronchial tree is patent. Linear subseg mental change at the bilateral lung bases most suggestive of scar or atelectasis. Minimal biapical pl eural thickening. MEDIASTINUM: There is interval improvement in degree burden of pulmonary embolism with some residual thrombus noted within a right middle lobe branch. Remaining pulmonary arterial system enhances normal ly. Aorta normal caliber. Heart size normal. Residual thymic tissue noted. There is bilateral axillary lymphadenopathy. A significant reduction in the size of the largest lymph node which previously measured short axis of 2.4 cm and now measures 1.6 cm within the right axilla. OTHER: No additional significant abnormality is seen. IMPRESSION: THERE IS INTERVAL SIGNIFICANT IMPROVEMENT WITH SOME RESIDUAL THROMBUS DESCRIBED ABOVE WITHIN THE P ULMONARY ARTERIAL SYSTEM. NONSPECIFIC BILATERAL AXILLARY LYMPHADENOPATHY IS IMPROVED RELATIVE TO THE PRIOR EXAM. CORRELATE CLI NICALLY.
== END | disposition home or self-care (01) ==
LOC: RADUSWWP 09:54
PROVIDERS: ATTEND Internal Medicine Hematology & Oncology
DX: I82.5Z9 Chronic embolism and thrombosis of unspecified deep veins of unspecified distal lower extremity (principal)
CPT/HCPCS: 93971; 71275; Q9967